=== PATIENT | male | born 1940 | race Caucasian/White ===

== ENCOUNTER → 2021-04-10 | Outpatient (CLI) | payer MEDICARE ==
--- NOTE | 2021-04-10 16:58 | RAD ---
EXAM: CT head without contrast INDICATION: Status post fall COMPARISON: None TECHNIQUE: Axial CT imaging through the head without intravenous contrast. One or more of the following individualized dose reduction techniques were utilized for this examinat ion: 1. Automated exposure control 2. Adjustment of the mA and/or kV according to patient size 3. Use of iterative reconstruction technique. FINDINGS: The ventricles and sulci are mildly enlarged. There is mild periventricular and deep white matter hyp oattenuation and multiple old lacunar infarcts in the basal ganglia bilaterally. No intracranial hemo rrhage or acute infarct, or mass lesion. The calvarium is intact. Paranasal sinuses and mastoid air c ells are clear. Globes and orbits are intact.. IMPRESSION: 1. No acute intracranial abnormality. 2. Moderate volume loss. 3. Multiple old small lacunar infarcts in the basal ganglia bilaterally. 4. Mild white matter disease, likely reflecting chronic microvascular ischemia. Electronically signed by: Zulma Perry MD (04/10/2021 4:55 PM) [id number]
== END ==
LOC: CT 16:26
PROVIDERS: ATTEND Family Medicine
DX: G31.89 Other specified degenerative diseases of nervous system (principal); W17.81XA Fall down embankment (hill), initial encounter
CPT/HCPCS: 70450

== ENCOUNTER 2021-07-09 05:52 | Observation (INO) | payer MEDICARE ==
[~2021-07-09] VITALS: Ht 175.3 cm; Wt 66.8 kg
--- NOTE | 2021-07-09 07:11 | PHYS DOC ---
General Adult EDM: Chief Complaint: ALTERED MENTAL STATUS HPI: HPI: Patient is a 80-year-old male coming with for altered mental status. At approximately 2200 last night, per , patient was seen in the couch looking the papers and confused, Khanh comes up with over the floor. States he was also mumbling to himself throughout the night in his sleep. This morning was disoriented, unable to answer questions such as me the president was or his grandkids names, until 0630 while in the emergency department became more oriented and able to answer questions appropriately. Has had similar episodes in the past that did not last as long, was told by his previous primary care provider that he had had TIAs. Review of Systems: Review of Systems: All other systems within normal limits except for as noted in the HPI Physical Exam: PE: Constitutional: Well developed, well nourished, no acute distress, non-toxic appearance. [] HENT: Normocephalic, atraumatic, bilateral external ears normal, nose normal. [] Eyes: PERRLA, conjunctiva normal, no discharge. [] Neck: No rigidity, supple, no stridor. [] Cardiovascular: Regular rate and rhythm, brisk cap refill [] Lungs & Thorax: Non labored symmetric respirations, no tachypnea or respiratory distress [] Abdomen: Soft, nondistended. Skin: Warm, dry, no erythema, no rash. [] Back: Unremarkable Extremities: No deformities, range of motion grossly intact, no lower extremity edema [] Neurologic: Alert and oriented X 3, no focal deficits noted. [] Psychologic: Affect normal, judgement normal, mood normal. [] EKG: EKG: [] Radiology/Procedures: Radiology/Procedures: [address] [address] IMAGING REPORT Signed PATIENT: ELÍAS LEWIS ACCOUNT: [id number] : 1940 LOCATION: ER AGE: 80 SEX: M EXAM STATUS: REG ER ORD. PHYSICIAN: NIMA MCKEON MD REASON: ALTERED MENTAL STATUS PROCEDURE: CT HEAD WO CONTRAST CT HEAD/BRAIN WO dated 07/09/2021 7:22 AM. Comparison: CT 04/10/2021. Clinical Indication: Reason: ALTERED MENTAL STATUS / Spl. Instructions: / History: Technical factors: Contiguous 5 mm axial images of the head were obtained from the skullbase to the vertex. No contrast was administered. Findings: There is no apparent intracranial mass, hemorrhage or abnormal extra-axial fluid collection. Areas of low density are again seen in the basal ganglia with chronic infarcts. No new area of abnormal density is identified. The ventricles and basilar cisterns are normally positioned. The sinuses and mastoid air cells are clear. Impression: No evidence of acute intracranial abnormality. Electronically signed by: Gerson Guaman Jr., MD (07/09/2021 8:01 AM) [id number] DICTATED AND SIGNED BY: GERSON GUAMAN Jr, MD DATE: 07/09/21 0758 CC: NIMA MCKEON MD; KRISTIE POSEY MD ~MTH0 0 [] Heart Score: C/O Chest Pain: No HEART Score for Chest Pain: HEART Score for Chest Pain Response (Comments) Value History Slighlty/Non-Suspicious 0 ECG Nonspecific Repolarizatio 1 Age > 65 2 Risk Factors >3 Risk Factors or Hx CAD 2 Troponin < Normal Limit 0 Total 5 Risk Factors: Risk Factors: DM, Current or recent (<one month) smoker, HTN, HLP, family history of CAD, obesity. Risk Scores: Score 0 - 3: 2.5% MACE over next 6 weeks - Discharge Home Score 4 - 6: 20.3% MACE over next 6 weeks - Admit for Clinical Observation Score 7 - 10: 72.7% MACE over next 6 weeks - Early Invasive Strategies Course & Med Decision Making: Course & Med Decision Making Pertinent Labs and Imaging studies reviewed. (See chart for details) [] Dragon Disclaimer: Dragon Disclaimer: This electronic medical record was generated, in whole or in part, using a voice recognition dictation system. Departure Departure: Impression: Primary Impression: AMS (altered mental status) Disposition: ADMITTED INPATIENT Admitting Physician: Kristie Posey Condition: STABLE Referrals: KRISTIE POSEY MD (PCP) NIMA MCKEON MD Jul 09, 2021 07:11
[2021-07-09 07:19] LABS: BASO # 0.1 x10^3/uL (0.0-0.2); BASO % 1 % (0-3); EOS # 0.3 x10^3/uL (0.0-0.7); EOS % 4 % (0-3); HEMATOCRIT 39.9 % (39.0-53.0); HEMOGLOBIN 13.6 g/dL (13.0-17.5); LYMPH # 1.3 x10^3/uL (1.0-4.8); LYMPH % 19 % (24-48); MEAN CORPUSCULAR HEMOGLOBIN 30 pg (25-35); MEAN CORPUSCULAR HGB CONC 34 g/dL (31-37); MEAN CORPUSCULAR VOLUME 87 fL (79-100); MONO # 0.6 x10^3/uL (0.0-1.1); MONO % 9 % (0-9); NEUT # 4.7 x10^3uL (1.8-7.7); NEUT % 67 % (31-73); PLATELET COUNT 260 x10^3/uL (140-400); RED BLOOD COUNT 4.56 x10^6/uL (4.30-5.70); RED CELL DISTRIBUTION WIDTH 13.9 % (11.5-14.5)
[2021-07-09 07:22] LABS: CALCIUM 9.5 mg/dL (8.5-10.1); CREATININE 1.4 mg/dL (0.7-1.3); GFR 48.6; POTASSIUM 4.6 mmol/L (3.5-5.1)
[2021-07-09 07:22] LABS: BARBITURATES NEG (NEG); BENZODIAZEPINES NEG (NEG); CANNABINOIDS NEG (NEG); COCAINE NEG (NEG); METHADONE NEG (NEG); OPIATES NEG (NEG); PHENCYCLIDINE NEG (NEG)
--- NOTE | 2021-07-09 07:22 | EKG ---
[address] [address] Test Date: 2021-07-09 Test Time: 07:12:33 Pat Name: ELÍAS LEWIS Department: Room: Gender: M [facility] Specialist: TANI : 1940 Requested By: NIMA MCKEON Order Number: [id number] Reading MD: Jatinder Don MD Measurements Intervals [place] Rate: 82 P: 26 [place]: 206 QRS: 40 QRSD: 60 T: 41 QT: 368 QTc: 433 Interpretive Statements SINUS RHYTHM RBBB Electronically Signed On 07-09-2021 10:16:28 CDT by Jatinder Don MD
[2021-07-09 07:28] LABS: AMPHETAMINE/METHAMPHETAMINE NEG (NEG)
[2021-07-09 07:35] LABS: ALBUMIN 3.5 g/dL (3.4-5.0); ALBUMIN/GLOBULIN RATIO 1.1 (1.0-1.7); MAGNESIUM 2.1 mg/dL (1.8-2.4); PHOSPHORUS 3.9 mg/dL (2.6-4.7); TOTAL BILIRUBIN 0.3 mg/dL (0.2-1.0); TOTAL PROTEIN 6.8 g/dL (6.4-8.2)
[2021-07-09 07:48] LABS: BACTERIA,URINE 0 /HPF (0-FEW); BILIRUBIN,URINE NEG (NEG); CLARITY,URINE CLEAR; COLOR,URINE STRAW; GLUCOSE,URINE NEG (NEG); NITRITE,URINE NEG (NEG); RBC,URINE RARE /HPF (0-2); SQUAMOUS EPITHELIAL CELL,UR FEW /LPF; UROBILINOGEN,URINE 0.2 mg/dL (0.2 mg/dL); WBC,URINE OCC /HPF (0-4)
--- NOTE | 2021-07-09 08:03 | RAD ---
CT HEAD/BRAIN WO dated 07/09/2021 7:22 AM. Comparison: CT 04/10/2021. Clinical Indication: Reason: ALTERED MENTAL STATUS / Spl. Instructions: / History: Technical factors: Contiguous 5 mm axial images of the head were obtained from the skullbase to the vertex. No contrast was administered. Findings: There is no apparent intracranial mass, hemorrhage or abnormal extra-axial fluid collection. Areas of low density are again seen in the basal ganglia with chronic infarcts. No new area of abnormal densi ty is identified. The ventricles and basilar cisterns are normally positioned. The sinuses and mastoi d air cells are clear. Impression: No evidence of acute intracranial abnormality. Electronically signed by: Alcon Guaman Jr., MD (07/09/2021 8:01 AM) [id number]
[2021-07-09] MEDS ORDERED: ACETAMINOPHEN 325 MG TABLET PO PRN (08:30)
[2021-07-09] MEDS ORDERED: ONDANSETRON PF 4 MG/2 ML VIAL. IVP PRN (08:30)
[2021-07-09 14:21] VITALS: BP 135/72
[2021-07-09 18:53] VITALS: BP 148/76
[2021-07-09 22:45] VITALS: BP 158/78
[2021-07-10 05:58] VITALS: BP 154/81
[2021-07-10 05:59] LABS: BASO # 0.1 x10^3/uL (0.0-0.2); BASO % 1 % (0-3); EOS # 0.4 x10^3/uL (0.0-0.7); EOS % 6 % (0-3); HEMATOCRIT 40.6 % (39.0-53.0); HEMOGLOBIN 13.6 g/dL (13.0-17.5); LYMPH # 1.4 x10^3/uL (1.0-4.8); LYMPH % 22 % (24-48); MEAN CORPUSCULAR HEMOGLOBIN 30 pg (25-35); MEAN CORPUSCULAR HGB CONC 34 g/dL (31-37); MEAN CORPUSCULAR VOLUME 88 fL (79-100); MONO # 0.6 x10^3/uL (0.0-1.1); MONO % 9 % (0-9); NEUT # 4.2 x10^3uL (1.8-7.7); NEUT % 63 % (31-73); PLATELET COUNT 261 x10^3/uL (140-400); RED BLOOD COUNT 4.63 x10^6/uL (4.30-5.70); RED CELL DISTRIBUTION WIDTH 13.6 % (11.5-14.5); WHITE BLOOD COUNT 6.6 x10^3/uL (4.0-11.0)
[2021-07-10 06:10] LABS: CALCIUM 8.9 mg/dL (8.5-10.1); CREATININE 1.2 mg/dL (0.7-1.3); GFR 58.1; POTASSIUM 4.1 mmol/L (3.5-5.1)
[2021-07-10 10:30] VITALS: BP 124/70
[2021-07-10] MEDS ORDERED: ASPI-889 PO (10:39)
[2021-07-10] MEDS ORDERED: FINA5TAB4 PO (10:39)
[2021-07-10] MEDS ORDERED: BRIM5DRO4 EACHEYE (10:39)
[2021-07-10] MEDS ORDERED: LATA7.5D OU (10:39)
[2021-07-10] MEDS ORDERED: ATORVASTATIN CA80 MG PO (10:39)
[2021-07-10 15:05] VITALS: BP 156/76
--- NOTE | 2021-07-10 17:35 | NUR ---
Discharge Note: MASOUD LEWIS [facility] Discharge instructions and discharge home medications reviewed with Patient and a copy given. All questions have been answered and understanding verbalized. Discharge instructions and handouts given. Cardiac diet, TIA, and stroke education provided. Discontinued IVs. Patient discharged to home. Pt left unit via wheelchair to private vehicle.
--- NOTE | 2021-07-11 13:05 | HP ---
DATE OF SERVICE: 07/11/2021 ADMIT DATE: 07/09/2021 HISTORY OF PRESENT ILLNESS: He is an 80-year-old gentleman, initially came in through the Emergency Room and had a change in mental status. The patient was on the couch, lifting the papers, got increasingly confused, started mumbling through his sleep, was unable to be appropriate with family members. He has had previous histories of TIAs or strokes and the patient was admitted to the hospital for further evaluation and treatment for rule out IL protocol and change in mental status, possible stroke evolution. 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 IMMUNIZATIONS: Influenza and COVID up to date vaccines. FAMILY HISTORY: Noncontributory. ALLERGIES: MORPHINE. SOCIAL HISTORY: The patient had about a [id number] history of smoking, stopped however since 1998. Denies IV drug use or any other medication off of what has been approved. The patient is a FULL CODE. REVIEW OF SYSTEMS: The patient presently just feels generally weak, trouble with some of his speech. PHYSICAL EXAMINATION: HEENT: The patient's head atraumatic, normocephalic. Eyes: PERRLA without jaundice. The mouth and throat were normal. NECK: Supple without JVD, carotid bruits or thyroidmegaly. VITAL SIGNS: Blood pressure 150/70, respiratory rate 18, pulse 80. He is afebrile. Room air 94-97. LUNGS: Clear. EXTREMITIES: No clubbing, cyanosis, nor edema. NEUROLOGIC: The patient's speech fluent, spontaneous, appropriate. BACK: Denies any severe back pain at all. IMAGING DATA: CT of the head basically unremarkable, just showing chronic areas of infarction, possibly in the basal ganglia. Otherwise, the patient made good progress and was admitted for observation and continued to be monitored carefully, making further evaluation on him as indicated. IMPRESSION: Transient ischemic attack, change in mental status, history of compression fracture at T12. Make further assessment on him as indicated. DIPIKA/JARAD DR: DIPIKA/jonny TID: [id number]
== END 2021-07-10 17:00 | disposition home or self-care (01) ==
LOC: ER 05:52 → 1 SOUTH 08:26 → INTOOBSV 08:26
PROVIDERS: ADMIT Family Medicine; ATTEND Family Medicine
DX: G45.9 Transient cerebral ischemic attack, unspecified (principal); Z20.822 Contact with and (suspected) exposure to COVID-19; R41.82 Altered mental status, unspecified; I95.9 Hypotension, unspecified; F41.9 Anxiety disorder, unspecified; J44.9 Chronic obstructive pulmonary disease, unspecified; Z86.73 Personal history of transient ischemic attack (TIA), and cerebral infarction without residual deficits; Z87.311 Personal history of (healed) other pathological fracture; Z87.891 Personal history of nicotine dependence; Z98.49 Cataract extraction status, unspecified eye; Z87.440 Personal history of urinary (tract) infections; Z79.899 Other long term (current) drug therapy; Z98.890 Other specified postprocedural states
CPT/HCPCS: 36415; 70450; 80048; 80053; 80307; 81001; 82140; 83605; 83735; 83880; 84100; 84484; 85025; 87426; 93005; 99285; G0378; G0480; U0003; G0379

== ENCOUNTER 2021-11-26 23:01 | Observation (INO) | payer MEDICARE ==
[~2021-11-26] VITALS: Ht 175.3 cm; Wt 60.0 kg
[~2021-11-26 23:01] MED LIST: ASPI-889 PO; ATORVASTATIN CA80 MG PO; BRIM5DRO4 EACHEYE; FINA5TAB4 PO; LATA7.5D OU
--- NOTE | 2021-11-26 23:15 | PHYS DOC ---
Past History Additional Past Medical Histor: pneumothorax, epiditimitis,nodules in lungs Past Surgical History: Pneumothorax, Other Additional Past Surgical Histo: lungs glued to chest wall, surg for epiditimitis Alcohol Use: None General Adult HPI: HPI: ".. I just fell.. no reason..yeah.. my hip hurts... chest hurts.. " Patient is a 81 year old male who presents with above hx of fall . Patient very poor historian reference mechanism of fall or cause of fall. Denies that he tripped. Patient complains of pain on right chest wall anterior axillary line. Patient complains of pain in right hip. Prior to fall was able to walk with walker, currently unable to walk with his walker. Patient has past medical history of dementia, multiple TIAs, hypotension, pneumothorax, COPD, multiple pulmonary blebs, urinary tract infections, T12 compression fractures, anxiety, approximately 55 pack year smoking history however stopped in 1998. Patient has received influenza and COVID vaccinations. Patient lives with his . states he has been falling much more. who has her own disabilities states she cannot handle him tonight. 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 Patient normally follows with Dr. Posey. Review of Systems: Review of Systems: Constitutional: Denies fever or chills Eyes: Denies change in visual acuity HENT: Denies nasal congestion or sore throat. Complains of head injury and fall Respiratory: Denies cough or shortness of breath Cardiovascular: Complains of right chest wall pain GI: Denies abdominal pain, nausea, vomiting, bloody stools or diarrhea : Denies dysuria Musculoskeletal: Complains of right hip pain Integument: Denies rash Neurologic: Denies headache, focal weakness or sensory changes Endocrine: Denies polyuria or polydipsia Lymphatic: Denies swollen glands Psychiatric: Denies depression or anxiety Family History: Family History: Noncontributory to presentation Current Medications: Current Meds: See nursing for home meds Allergies: Allergies: Allergies Coded Allergies Type Severity Reaction Last Updated Verified morphine Allergy Unknown 07/09/21 Yes Physical Exam: PE: Constitutional: Moderate acute distress, non-toxic appearance. [] HENT: Normocephalic, atraumatic, bilateral external ears normal, oropharynx moist, no oral exudates, nose normal. Hard of hearing. Complaining of earache after fall yesterday.. On that fall he hit the tub on the left side of his head. Eyes: PERRLA, EOMI, conjunctiva normal, no discharge. [] Neck: Normal range of motion, no tenderness, supple, no stridor. [] Cardiovascular: Tachycardia heart rate regular rhythm, no murmur []. PMI to left. Bedside monitor occasionally did show episodes of bigeminy. Lungs & Thorax: Bilateral breath sounds equal apex with scattered wheezes on auscultation []. The patient has old surgery scars on chest. Patient has tenderness along right anterior axillary line floating ribs and level of sternal notch. Abdomen: Bowel sounds normal, soft, no tenderness, no masses, no pulsatile mas ses. Scaphoid. Right hip tenderness Skin: Warm, dry, no erythema, no rash. [] Back: No tenderness, no CVA tenderness. [] Extremities: Right hip tenderness, no cyanosis, no clubbing, ROM intact, no edema. [] Arthritic changes. Neurologic: Alert and oriented X 3, normal motor function, normal sensory function, no focal deficits noted. [] Psychologic: Affect anxious, mood normal. [] EKG: EKG: My interpretation of EKG shows a sinus rhythm with low voltage at a rate of 79. No findings of acute STEMI of contralateral changes. There did appear to be some bundle branch blockage, similar to prior EKGs on file. Time of EKG is 2358 [] Radiology/Procedures: Radiology/Procedures: [address] [address] IMAGING REPORT Signed PATIENT: ELÍAS LEWIS ACCOUNT: [id number] : 1940 LOCATION: ER AGE: 81 SEX: M EXAM STATUS: REG ER ORD. PHYSICIAN: BRIANNA TUCKER MD REASON: fall PROCEDURE: PORTABLE CHEST 1V EXAMINATION: Chest radiograph. VIEWS: 1 COMPARISON: None INDICATION:81 years, Male, fall. FINDINGS: Normal cardiomediastinal silhouette. Biapical pleural thickening/scarring. Surgical suture in the right apical lung. Patchy airspace opacity in the right lateral lung base. Possible small right pleural effusion. No pneumothorax. No acute osseous process. IMPRESSION: Focal patchy airspace opacity in the right lateral lung base, indeterminate, could represent atelectatic changes/scarring. Possible small right pleural effusion. Electronically signed by: Werner Forrest MD (11/27/2021 12:59 AM) [facility] DICTATED AND SIGNED BY: WERNER FORREST MD DATE: 11/27/21 0056 CC: KRISTIE POSEY MD; BRIANNA TUCKER MD ~MTH0 [address] [place] [address] IMAGING REPORT Signed PATIENT: ELÍAS LEWIS ACCOUNT: [id number] : 1940 LOCATION: ER AGE: 81 SEX: M EXAM STATUS: REG ER ORD. PHYSICIAN: BRIANNA TUCKER MD REASON: fall PROCEDURE: RIGHT FEMUR XRAY EXAMINATION: Right femur radiograph. VIEWS: 1 COMPARISON: None INDICATION:81 years, Male, fall. FINDINGS: No acute fracture, dislocation or subluxation. No bone erosion or periosteal reaction. No soft tissue swelling. IMPRESSION: No acute osseous process. Electronically signed by: Werner Forrest MD (11/27/2021 2:00 AM) [facility] DICTATED AND SIGNED BY: WERNER FORREST MD DATE: 11/27/21 0151 CC: KRISTIE POSEY MD; BRIANNA TUCKER MD ~MTH0 0 [][address] [address] IMAGING REPORT Signed PATIENT: ELÍAS LEWIS ACCOUNT: [id number] : 1940 LOCATION: ER AGE: 81 SEX: M EXAM STATUS: REG ER ORD. PHYSICIAN: BRIANNA TUCKER MD REASON: fell hit head on bathtub edge PROCEDURE: CT HEAD WO CONTRAST EXAMINATION: CT head and cervical spine without IV contrast. INDICATION:81 years, Male, falling down. COMPARISON: CT dated 07/09/2021 TECHNIQUE: Spiral acquisition of contiguous images from the skull base to the vertex were obtained. CT of the cervical spine was obtained using contiguous spiral imaging from the skull base to the upper thoracic level. Sagittal and coronal 2D reformatted series were provided by the technologist. Soft tissue and bone window algorithms were reviewed. Exposure: One or more of the following individualized dose reduction techniques were utilized for this examination: 1. Automated exposure control 2. Adjustment of the mA and/or kV according to patient size 3. Use of iterative reconstruction technique. FINDINGS: CT HEAD: Neither mass, midline shift, intracranial hemorrhage, acute/subacute ischemic changes, nor extraaxial fluid collections are seen. Moderate brain parenchymal volume loss. Similar supratentorial periventricular white matter hypodensities, indeterminate but most likely representing chronic microangiopathic disease. 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 The paranasal sinuses, mastoid air cells, and middle ears are clear. The orbital contents appear within normal limits. CT CERVICAL SPINE: Anatomic alignment of the cervical spine is maintained. Neither fracture, subluxation, nor traumatic spondylolisthesis is seen. The vertebral body heights are preserved. Multilevel degenerative changes with disc space narrowing and osteophytes. Multilevel bilateral facet and uncovertebral arthropathy. There is no evidence of a large intraspinal hematoma. The prevertebral and paravertebral soft tissues are within normal limits. IMPRESSION: 1. No acute intracranial abnormality. 2. No acute fracture of the cervical spine. EXAMINATION: CT chest, abdomen and pelvis with IV contrast. INDICATION:81 years, Male, falling down. TECHNIQUE: Axial CT images of the chest, abdomen and pelvis were obtained. Coronal and sagittal reformatted performed. COMPARISON: None. Exposure: One or more of the following individualized dose reduction techniques were utilized for this examination: 1. Automated exposure control 2. Adjustment of the mA and/or kV according to patient size 3. Use of iterative reconstruction technique. FINDINGS: CHEST: Subcentimeter hypodense nodule in the right thyroid lobe. Unremarkable esophagus. Moderate size hiatal hernia. No lymphadenopathy in the chest by size criteria. No cardiomegaly or pericardial effusions. Mild coronary artery atherosclerotic calcifications. Normal caliber thoracic aorta and pulmonary arteries. Central airways are patent. Post right apical lung wedge resection changes with scarring and volume loss. Right basilar posterior pleural thickening with calcified plaques. Patchy groundglass opacity in the right lateral basilar lung. [id number]-yw-lykxnqes centrilobular and paraseptal emphysema in the upper lobes. No pleural effusion or pneumothorax. Multiple scattered bilateral solid pulmonary nodules with the largest in the posterior left lower lobe measures 6 mm. ABDOMEN/PELVIS: Suboptimal exam due to motion artifact. Liver, spleen, gallbladder, biliary ducts are unremarkable. Distal pancreatic body and tail atrophic changes. Nodular thickening of the left adrenal gland without discrete nodule. Right adrenal gland is unremarkable. No hydronephrosis in either kidney. Focal cortical thinning in the lower pole right kidney. Simple appearing right parapelvic renal cyst. No bowel obstruction. Appendix is not seen with certainty. Moderate aortoiliac atherosclerotic calcifications without dilation or significant narrowing. Mesenteric arteries and portal veins are patent. [place] fat in the central small bowel mesentery with prominent mesenteric lymph nodes, nonspecific findings and can be seen in mesenteric panniculitis. No pneumoperitoneum or ascites. No lymphadenopathy in the abdomen by size criteria. Multiple calcifications layering in the posterior right posterior urinary bladder, most likely bladder stones. Prostamegaly indents bladder base. MUSCULOSKELETAL STRUCTURES: Small right inguinal hernia containing loop of small bowel without obstruction. Chronic healed sternal body fracture. No acute fracture. Mild compression deformity of T12 vertebral body, likely chronic. IMPRESSION: 1. No acute traumatic injury to the chest, abdomen or pelvis. 2. Patchy groundglass opacity in the right lateral basilar lung, nonspecific but may be infectious or inflammatory. 3. Multiple scattered bilateral solid pulmonary nodules with the largest in the posterior left lower lobe measures 6 mm. Recommend 6 months follow-up with CT chest. 4. Moderate size hiatal hernia. 5. Multiple calcifications layering in the posterior right posterior urinary bladder, most likely bladder stones. 6. Prostamegaly. Correlate with PSA level. 7. Small right inguinal hernia containing loop of small bowel without obstruction. 8. Mild compression deformity of T12 vertebral body, likely chronic. Electronically signed by: Werner Forrest MD (11/27/2021 1:32 AM) [facility] DICTATED AND SIGNED BY: WERNER FORREST MD DATE: 11/27/21 0102 CC: KRISTIE POSEY MD; BRIANNA TUCKER MD ~MTH0 0 Heart Score: C/O Chest Pain: N/A HEART Score for Chest Pain: HEART Score for Chest Pain Response (Comments) Value History Moderately Suspicious 1 ECG Nonspecific Repolarizatio 1 Age > 65 2 Risk Factors 1 or 2 Risk Factors 1 Troponin < Normal Limit 0 Total 5 Risk Factors: Risk Factors: DM, Current or recent (<one month) smoker, HTN, HLP, family history of CAD, obesity. Risk Scores: Score 0 - 3: 2.5% MACE over next 6 weeks - Discharge Home Score 4 - 6: 20.3% MACE over next 6 weeks - Admit for Clinical Observation Score 7 - 10: 72.7% MACE over next 6 weeks - Early Invasive Strategies Course & Med Decision Making: Course & Med Decision Making Pertinent Labs and Imaging studies reviewed. (See chart for details) Discussed presentation, testing and treatment plan with Dr. Posey. Admit to his service. Will obtain cardiology consult due to runs of [employer]. Impression: 1. Falling 2. Head injury 3. Elevated D-dimer 1.15 4. Anemia 12.9 hemoglobin 5. Malnutrition Albumin 3.1 6. Right hip contusion 7. Right chest wall contusion [] Dragon Disclaimer: Dragon Disclaimer: This electronic medical record was generated, in whole or in part, using a voice recognition dictation system. Departure Departure: Referrals: KRISTIE POSEY MD (PCP) Javid Disclaimer This chart was dictated in whole or in part using Voice Recognition software in a busy, high-work load, and often noisy Emergency Department environment. It may contain unintended and wholly unrecognized errors or omissions. BRIANNA TUCKER MD Nov 26, 2021 23:15
[2021-11-27] MEDS ORDERED: IV RINGERS SOLUTION,LACTATED 1,000 ML IV SCH
[2021-11-27 00:04] LABS: BASO # 0.1 x10^3/uL (0.0-0.2); BASO % 1 % (0-3); EOS # 0.2 x10^3/uL (0.0-0.7); EOS % 4 % (0-3); HEMATOCRIT 38.4 % (39.0-53.0); HEMOGLOBIN 12.9 g/dL (13.0-17.5); LYMPH # 1.4 x10^3/uL (1.0-4.8); LYMPH % 27 % (24-48); MEAN CORPUSCULAR HEMOGLOBIN 30 pg (25-35); MEAN CORPUSCULAR HGB CONC 34 g/dL (31-37); MEAN CORPUSCULAR VOLUME 88 fL (79-100); MONO # 0.6 x10^3/uL (0.0-1.1); MONO % 12 % (0-9); NEUT # 2.9 x10^3uL (1.8-7.7); NEUT % 57 % (31-73); PLATELET COUNT 238 x10^3/uL (140-400); RED BLOOD COUNT 4.37 x10^6/uL (4.30-5.70); RED CELL DISTRIBUTION WIDTH 13.9 % (11.5-14.5); WHITE BLOOD COUNT 5.1 x10^3/uL (4.0-11.0)
[2021-11-27 00:13] LABS: CALCIUM 8.7 mg/dL (8.5-10.1); CREATININE 1.3 mg/dL (0.7-1.3); GFR 52.9
[2021-11-27 00:16] LABS: INFLUENZA A PATIENT NEGATIVE (NEGATIVE); INFLUENZA B PATIENT NEGATIVE (NEGATIVE)
[2021-11-27] MEDS ORDERED: IOHEXOL 300 MG/ML 75 ML VIAL. IV ONE (00:30)
[2021-11-27] MEDS ORDERED: CONTRAST GIVEN. MC PRN (00:30)
[2021-11-27 00:31] LABS: ALBUMIN 3.1 g/dL (3.4-5.0); DIRECT BILIRUBIN 0.1 mg/dL (0.0-0.2); MAGNESIUM 2.2 mg/dL (1.8-2.4); TOTAL BILIRUBIN 0.2 mg/dL (0.2-1.0); TOTAL PROTEIN 6.7 g/dL (6.4-8.2)
--- NOTE | 2021-11-27 01:01 | RAD ---
EXAMINATION: Chest radiograph. VIEWS: 1 COMPARISON: None INDICATION:81 years, Male, fall. FINDINGS: Normal cardiomediastinal silhouette. Biapical pleural thickening/scarring. Surgical suture in the rig ht apical lung. Patchy airspace opacity in the right lateral lung base. Possible small right pleural effusion. No pneumothorax. No acute osseous process. IMPRESSION: Focal patchy airspace opacity in the right lateral lung base, indeterminate, could represent atelecta tic changes/scarring. Possible small right pleural effusion. Electronically signed by: Katerin Forrest MD (11/27/2021 12:59 AM) [facility]
--- NOTE | 2021-11-27 01:34 | RAD ---
EXAMINATION: CT head and cervical spine without IV contrast. INDICATION:81 years, Male, falling down. COMPARISON: CT dated 07/09/2021 TECHNIQUE: Spiral acquisition of contiguous images from the skull base to the vertex were obtained. C T of the cervical spine was obtained using contiguous spiral imaging from the skull base to the upper thoracic level. Sagittal and coronal 2D reformatted series were provided by the technologist. Soft t issue and bone window algorithms were reviewed. Exposure: One or more of the following individualized dose reduction techniques were utilized for thi s examination: 1. Automated exposure control 2. Adjustment of the mA and/or kV according to patient size 3. Use of iterative reconstruction technique. FINDINGS: CT HEAD: Neither mass, midline shift, intracranial hemorrhage, acute/subacute ischemic changes, nor extraaxial fluid collections are seen. Moderate brain parenchymal volume loss. Similar supratentorial perivent ricular white matter hypodensities, indeterminate but most likely representing chronic microangiopath ic disease. 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 The paranasal sinuses, mastoid air cells, a nd middle ears are clear. The orbital contents appear within normal limits. CT CERVICAL SPINE: Anatomic alignment of the cervical spine is maintained. Neither fracture, subluxation, nor traumatic spondylolisthesis is seen. The vertebral body heights are preserved. Multilevel degenerative changes with disc space narrowing and osteophytes. Multilevel bilateral facet and uncovertebral arthropathy. There is no evidence of a large intraspinal hematoma. The prevertebral and paravertebral soft tissues are within normal limits. IMPRESSION: 1. No acute intracranial abnormality. 2. No acute fracture of the cervical spine. EXAMINATION: CT chest, abdomen and pelvis with IV contrast. INDICATION:81 years, Male, falling down. TECHNIQUE: Axial CT images of the chest, abdomen and pelvis were obtained. Coronal and sagittal refor matted performed. COMPARISON: None. Exposure: One or more of the following individualized dose reduction techniques were utilized for thi s examination: 1. Automated exposure control 2. Adjustment of the mA and/or kV according to patient size 3. Use of iterative reconstruction technique. FINDINGS: CHEST: Subcentimeter hypodense nodule in the right thyroid lobe. Unremarkable esophagus. Moderate size hiata l hernia. No lymphadenopathy in the chest by size criteria. No cardiomegaly or pericardial effusions. Mild coronary artery atherosclerotic calcifications. Normal caliber thoracic aorta and pulmonary art eries. Central airways are patent. Post right apical lung wedge resection changes with scarring and volume l oss. Right basilar posterior pleural thickening with calcified plaques. Patchy groundglass opacity in the right lateral basilar lung. Kwnw-mx-xafscgsb centrilobular and paraseptal emphysema in the upper lobes. No pleural effusion or pneumothorax. Multiple scattered bilateral solid pulmonary nodules wit h the largest in the posterior left lower lobe measures 6 mm. ABDOMEN/PELVIS: Suboptimal exam due to motion artifact. Liver, spleen, gallbladder, biliary ducts are unremarkable. Distal pancreatic body and tail atrophic changes. Nodular thickening of the left adrenal gland without discrete nodule. Right adrenal gland is unremarkable. No hydronephrosis in either kidney. Focal cortical thinning in the lower pole right ki dney. Simple appearing right parapelvic renal cyst. No bowel obstruction. Appendix is not seen with certainty. Moderate aortoiliac atherosclerotic calcif ications without dilation or significant narrowing. Mesenteric arteries and portal veins are patent. [place] fat in the central small bowel mesentery with prominent mesenteric lymph nodes, nonspecific fin dings and can be seen in mesenteric panniculitis. No pneumoperitoneum or ascites. No lymphadenopathy in the abdomen by size criteria. Multiple calcifications layering in the posterior right posterior ur inary bladder, most likely bladder stones. Prostamegaly indents bladder base. MUSCULOSKELETAL STRUCTURES: Small right inguinal hernia containing loop of small bowel without obstruction. Chronic healed sterna l body fracture. No acute fracture. Mild compression deformity of T12 vertebral body, likely chronic. IMPRESSION: 1. No acute traumatic injury to the chest, abdomen or pelvis. 2. Patchy groundglass opacity in the right lateral basilar lung, nonspecific but may be infectious o r inflammatory. 3. Multiple scattered bilateral solid pulmonary nodules with the largest in the posterior left lower lobe measures 6 mm. Recommend 6 months follow-up with CT chest. 4. Moderate size hiatal hernia. 5. Multiple calcifications layering in the posterior right posterior urinary bladder, most likely bl adder stones. 6. Prostamegaly. Correlate with PSA level. 7. Small right inguinal hernia containing loop of small bowel without obstruction. 8. Mild compression deformity of T12 vertebral body, likely chronic. Electronically signed by: Katerin Forrest MD (11/27/2021 1:32 AM) [facility]
--- NOTE | 2021-11-27 02:02 | RAD ---
EXAMINATION: Right femur radiograph. VIEWS: 1 COMPARISON: None INDICATION:81 years, Male, fall. FINDINGS: No acute fracture, dislocation or subluxation. No bone erosion or periosteal reaction. No soft tissue swelling. IMPRESSION: No acute osseous process. Electronically signed by: Katerin Forrest MD (11/27/2021 2:00 AM) [facility]
[2021-11-27] MEDS ORDERED: ACETAMINOPHEN 325 MG TABLET PO PRN (02:30)
[2021-11-27] MEDS ORDERED: ONDANSETRON PF 4 MG/2 ML VIAL. IVP PRN (02:30)
[2021-11-27] MEDS ORDERED: ALBUTEROL SULFATE 8GM INHALER. INH ONE (02:33)
[2021-11-27 02:57] LABS: AMPHETAMINE/METHAMPHETAMINE NEG (NEG); BARBITURATES NEG (NEG); BENZODIAZEPINES NEG (NEG); CANNABINOIDS NEG (NEG); COCAINE NEG (NEG); METHADONE NEG (NEG); OPIATES NEG (NEG); PHENCYCLIDINE NEG (NEG)
[2021-11-27 02:58] LABS: BACTERIA,URINE 0 /HPF (0-FEW); CLARITY,URINE CLEAR; COLOR,URINE YELLOW; GLUCOSE,URINE NEG (NEG); NITRITE,URINE NEG (NEG); RBC,URINE 0 /HPF (0-2); UROBILINOGEN,URINE 0.2 mg/dL (0.2 mg/dL); WBC,URINE 0 /HPF (0-4)
[2021-11-27 02:59] LABS: SQUAMOUS EPITHELIAL CELL,UR OCC /LPF
[2021-11-27] MEDS: IV RINGERS SOLUTION,LACTATED 1,000 ML IV SCH ×3 (05:13→15:00)
[2021-11-27 05:20] VITALS: BP 211/96
--- NOTE | 2021-11-27 06:45 | EKG ---
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
--- NOTE | 2021-11-27 08:15 | PDOC2 ---
THEA ALFONSO ELAN 11/27/21 0815: CARDIAC CONSULT DATE OF CONSULT DOS: DATE: 11/27/21 TIME: 08:02 REASON FOR CONSULT Reason for Consult Dysrrhythmia PVC frequent falls REFERRING PHYSICIAN Referring Physician Dr. Dominguez SOURCE Source: Chart review, Patient HPI History of Present Illness This is an 81 yo female who presented secondary to right hip pain after fall. Patient initially unable to provide any details of events leading up to admission. When asked about having a fall, patient reports he feel in the bathroom against the tub. Reports having multiple fall in the past. He does not recall any precipitating dizziness or lightheadedness. Denies any LOC. Unsure why he has fallen in past. Reports "it just happens". Is feeling well this morning and denies any chest pain, shortness of breath, dizziness, diaphoresis, or nausea/vomiting. Was noted on tele with frequent PVC's, which prompted this consult. Patient reports history of "throwing PVC's". No recent cardiac workup known. PAST MEDICAL HISTORY Cardiovascular: HTN, hyperipidemia Pulmonary: COPD, Other ( pulmonary blebs, pneumothorax) CENTRAL NERVOUS SYSTEM: TIA GI: GERD Psych: Anxiety, Depression Musculoskeletal: Osteoarthritis, Other (falls ) Renal/: Benign prostatic enlarg. PAST SURGICAL HISTORY Past Surgical History: Cataract Removal SOCIAL HISTORY Smoke: Quit ALCOHOL: none Drugs: None Lives: with Family CURRENT MEDICATIONS Current Medications Current Medications Lactated Ringer's 1,000 ml @ 100 mls/hr Q10H IV Last administered on 11/27/21at 00:25; Start 11/27/21 at 00:00; Stop 11/27/21 at 09:59 Iohexol (Omnipaque 300 Mg/ml) 75 ml 1X ONCE IV ; Start 11/27/21 at 00:30; Stop 11/27/21 at 00:31; Status DC Info (Do NOT chart on this entry -- for MONITORING) 1 each PRN DAILY PRN MC SEE COMMENTS; Start 11/27/21 at 00:30; Stop 11/29/21 at 00:29 Ondansetron HCl (Zofran) 4 mg PRN Q4HRS PRN IVP NAUSEA/VOMITING; Start 11/27/21 at 02:30; Stop 11/28/21 at 02:29 Acetaminophen (Tylenol) 650 mg PRN Q4HRS PRN PO FEVER > 100.3'F; Start 11/27/21 at 02:30; Stop 11/28/21 at 02:29 Albuterol Sulfate (Ventolin Hfa Inhaler) 2 puff QID ONCE INH ; Start 11/27/21 at 02:33; Stop 11/27/21 at 02:34; Status DC Lactated Ringer's 1,000 ml @ 160 mls/hr Q6H15M IV Last administered on 11/27/21at 05:13; Start 11/27/21 at 02:30 Active Scripts Active Reported Aspirin Ec (Aspirin) 81 Mg Tablet.dr 1 Tab PO DAILY Latanoprost 0.005% Eye Drop (Latanoprost/Pf) 7.5 Ml Drops 1 Drop OU QHS Brimonidine Tartrate 5 Ml Drops 1 Drop EACHEYE BID Finasteride 5 Mg Tablet 1 Tab PO DAILY Atorvastatin Calcium 80 Mg Tablet 80 Mg PO QHS ALLERGIES Allergies: Coded Allergies: morphine (Verified Allergy, Unknown, 07/09/21) ROS Review of Systems 14 ROS conducted with pertinent positives noted above in HPI PHYSICAL EXAM General: Alert, Cooperative, No acute distress, Other (oriented to person and place) HEENT: Atraumatic Lungs: Clear to auscultation Heart: Regular rate Abdomen: Soft, No tenderness Extremities: No edema Skin: No breakdown Neuro: Normal speech, Sensation intact Psych/Mental Status: Mood NL, Other (forgetful ) MUSCULOSKELETAL: Osteoarthritic changes both hands VITALS Vital Signs Vital Signs Date Time Temp Pulse Resp B/P (MAP) Pulse Ox O2 Delivery O2 Flow Rate FiO2 11/27/21 05:20 Room Air 11/27/21 05:20 97.2 48 18 211/96 (134) 98 LABS LABS Laboratory Tests Test 11/26/21 23:44 11/26/21 23:50 11/27/21 02:37 11/27/21 04:00 White Blood Count 5.1 x10^3/uL (4.0-11.0) Red Blood Count 4.37 x10^6/uL (4.30-5.70) Hemoglobin 12.9 g/dL (13.0-17.5) Hematocrit 38.4 % (39.0-53.0) Mean Corpuscular Volume 88 fL (79-100) Mean Corpuscular Hemoglobin 30 pg (25-35) Mean Corpuscular Hemoglobin Concent 34 g/dL (31-37) Red Cell Distribution Width 13.9 % (11.5-14.5) Platelet Count 238 x10^3/uL (140-400) Neutrophils (%) (Auto) 57 % (31-73) Lymphocytes (%) (Auto) 27 % (24-48) Monocytes (%) (Auto) 12 % (0-9) Eosinophils (%) (Auto) 4 % (0-3) Basophils (%) (Auto) 1 % (0-3) Neutrophils # (Auto) 2.9 x10^3uL (1.8-7.7) Lymphocytes # (Auto) 1.4 x10^3/uL (1.0-4.8) Monocytes # (Auto) 0.6 x10^3/uL (0.0-1.1) Eosinophils # (Auto) 0.2 x10^3/uL (0.0-0.7) Basophils # (Auto) 0.1 x10^3/uL (0.0-0.2) Prothrombin Time 10.6 SEC (9.4-11.4) Prothromb Time International Ratio 1.0 (0.9-1.1) Activated Partial Thromboplast Time 24 SEC (23-33) D-Dimer (Gisele) 1.15 mg/L (0.00-0.50) Sodium Level 139 mmol/L (136-145) Potassium Level 4.0 mmol/L (3.5-5.1) Chloride Level 105 mmol/L (98-107) Carbon Dioxide Level 29 mmol/L (21-32) Anion Gap 5 (6-14) Blood Urea Nitrogen 19 mg/dL (8-26) Creatinine 1.3 mg/dL (0.7-1.3) Estimated GFR (Cockcroft-Gault) 52.9 Glucose Level 81 mg/dL (70-99) Calcium Level 8.7 mg/dL (8.5-10.1) Magnesium Level 2.2 mg/dL (1.8-2.4) Total Bilirubin 0.2 mg/dL (0.2-1.0) Direct Bilirubin 0.1 mg/dL (0.0-0.2) Aspartate Amino Transf (AST/SGOT) 22 U/L (15-37) Alanine Aminotransferase (ALT/SGPT) 26 U/L (16-63) Alkaline Phosphatase 91 U/L (46-116) Creatine Kinase 83 U/L (39-308) Troponin I High Sensitivity 15 ng/L (4-75) 15 ng/L (4-75) BD-Vot-S-Type Natriuretic Peptide 221 pg/mL (0-449) Total Protein 6.7 g/dL (6.4-8.2) Albumin 3.1 g/dL (3.4-5.0) Lipase 158 U/L (73-393) Influenza Type A (Rapid) Negative (NEGATIVE) Influenza Type B (Rapid) Negative (NEGATIVE) SARS-CoV-2 Antigen (Rapid) Negative (NEGATIVE) Urine Collection Type Clean catch Urine Color Yellow Urine Clarity Clear Urine pH 6.0 Urine Specific [place] 1.015 Urine Protein Neg (NEG-TRACE) Urine Glucose (UA) Neg mg/dL (NEG) Urine Ketones (Stick) Neg mg/dL (NEG) Urine Blood Neg (NEG) Urine Nitrite Neg (NEG) Urine Bilirubin Neg (NEG) Urine Urobilinogen Dipstick 0.2 mg/dL (0.2 mg/dL) Urine Leukocyte Esterase Neg (NEG) Urine RBC 0 /HPF (0-2) Urine WBC 0 /HPF (0-4) Urine Squamous Epithelial Cells Occ /LPF Urine Bacteria 0 /HPF (0-FEW) Urine Opiates Screen Neg (NEG) Urine Methadone Screen Neg (NEG) Urine Barbiturates Neg (NEG) Urine Phencyclidine Screen Neg (NEG) Urine Amphetamine/Methamphetamine Neg (NEG) Urine Benzodiazepines Screen Neg (NEG) Urine Cocaine Screen Neg (NEG) Urine Cannabinoids Screen Neg (NEG) Urine Ethyl Alcohol Neg (NEG) Test 11/27/21 07:21 Troponin I High Sensitivity 18 ng/L (4-75) ASSESSMENT/PLAN Assessment/Plan 1. Falls, recurrent; details unclear. Denies any precipitating dizziness or LOC. CT head without acute findings 2. Arrhythmia; frequent PVC's noted on tele. Patient reports this as chronic. Mg WNL 3. Hypertension; labile this morning 4. Hyperlipidemia 5. H/o TIA, ? dementia 6. COPD, h/o pulmonary blebs, pneumothorax Recommendations Add low-dose BB for arrhythmia suppression TSH pending Will arranged outpatient echo and event monitor Follow up in our office with Dr. Downs as scheduled. GERSON DOWNS MD 11/27/21 1804: CARDIAC CONSULT ASSESSMENT/PLAN Assessment/Plan Patient seen and evaluated. I agree with our pull out operator assessment and plan. Falls, recurrent; details unclear. Denies any precipitating dizziness or LOC. CT head without acute findings Arrhythmia; frequent PVC's noted on tele. Patient reports this as chronic. Mg WNL. Low dose beta waqas. Out pt. monitor and ECHO. Office follow-up. Hypertension; improved. Hyperlipidemia. Continue present treatment. H/o TIA, ? dementia COPD, h/o pulmonary blebs, pneumothorax THEA ALFONSO APRN Nov 27, 2021 08:15 GERSON DOWNS MD Nov 27, 2021 18:04
[2021-11-27] MEDS: BRIMONIDINE 0.2% OPHTH SOLUTION 5ML BOTTLE. OU SCH ×2 (09:30→20:18)
[2021-11-27] MEDS: FINASTERIDE 5 MG TABLET. PO SCH (09:51)
[2021-11-27] MEDS: ASPIRIN ENTERIC COATED 81 MG TABLET.DR. PO SCH (09:52)
[2021-11-27] MEDS: METOPROLOL TART IMMED RELEASE 25 MG TABLET. PO SCH ×2 (09:52→20:18)
[2021-11-27 10:30] VITALS: BP 102/64
--- NOTE | 2021-11-27 13:26 | RAD ---
BILATERAL DUPLEX CAROTID SONOGRAPHY History: Reason: SYNCOPE, RECENT FALLS / Spl. Instructions: / History: Technique: Duplex sonography of the cervical portion of both carotid arteries was performed. Real-stacey e grayscale, color flow Doppler, and Doppler spectral waveform analysis is performed. Findings: Right side: Peak systolic flow velocity of the CCA is 118 cm/sec. Peak systolic flow velocity of the ICA is 124 cm/sec. The ICA/CCA ratio is 1.1. Peak end diastolic flow velocity of the ICA is 12 cm/sec. The peak systolic velocity of the ECA is 142 cm/sec. There is CCA intimal thickening. Left side: Peak systolic flow velocity of the CCA is 96 cm/sec. Peak systolic flow velocity of the ICA is 91 cm/sec. The ICA/CCA ratio is 0.8. Peak end diastolic flow velocity of the ICA is 12 cm/sec. Peak systolic flow velocity of the ECA is 159 cm/sec. Mild echogenic plaque in the carotid bulb. Vertebral arteries: Bilateral vertebral arteries demonstrate antegrade flow. IMPRESSION: No hemodynamically significant internal carotid artery stenosis is identified. PQRS Compliance Statement - Stenosis calculations for CT, MR and conventional angiography are based u justice measurement of the distal ICA diameter in accordance with the NASCET methodology. Stenosis calcu lations for carotid ultrasound studies are derived from validated velocity criteria which are known t o correlate with the NASCET methodology. Electronically signed by: Germán Smith MD (11/27/2021 1:23 PM) [id number]
[2021-11-27 15:09] VITALS: BP 101/54
[2021-11-27 19:00] VITALS: BP 107/64
--- NOTE | 2021-11-27 19:27 | HP ---
DATE OF SERVICE: 11/27/2021 ADMIT DATE: 11/27/2021 HISTORY OF PRESENT ILLNESS: An 81-year-old male came in through the Emergency Room as apparently he had been falling. The patient does not know the cause of the falling. The patient complains of pain in the right chest wall, anterior axillary line. Complains of pain in the hip. Prior to the fall, the patient was using a walker, unable to use the walker. The patient has severe dementia, multiple other falls in the past. The patient came increasingly weakened and as a result of this was brought in through the Emergency Room where he was admitted and found to have possible pneumonia and other problems going on, compression fracture as well. The patient also noted to have an elevated blood pressure. We will continue to monitor on all of these issues as well. PAST MEDICAL HISTORY: Cataracts. He has had TIAs, hypercholesterolemia, hypertension, chest surgery, history of pulmonary blebs, right and left pneumothorax, GERD, urinary retention, T12 compression fracture, depression, alcohol abuse, stopped in 1986. Influenza vaccination up to date. ALLERGIES: MORPHINE. SOCIAL HISTORY: The patient has about a [id number] history of smoking, although he stopped. The patient denies hard drug use and has quit drinking as indicated. The patient is a FULL CODE. REVIEW OF SYSTEMS: The patient denies any headaches, visual change, blurred vision, double vision. Denies chest pain, shortness of breath, abdominal pain. Denies any melena, hematochezia or hematemesis and neurologically baseline where he does have some baseline dementia as indicated. PHYSICAL EXAMINATION: GENERAL: This is a pleasant white male. VITAL SIGNS: Blood pressure was as high as 210/96, respiratory rate 18, pulse 48, afebrile, 95% on room air. HEENT: The patient's head was slightly traumatic, has bumps on the side. Other than that, the patient's eyes were PERRLA. Poor dentition. NECK: Supple without JVD, carotid or thyromegaly. LUNGS: Diminished, poor movement of air. CARDIOVASCULAR: Regular sinus rhythm, S1, S2. I/ systolic ejection murmur. The patient's EKG shows sinus rhythm with a right bundle branch block. The patient otherwise stable there. LABORATORY DATA: Show white count 5, hemoglobin 12, hematocrit 38. Chemistries: 139, 4, 19, 1.3. Albumin 3.1. TSH was normal. Troponins were negative. The patient's tox screen negative. Thyroid is negative. Urine unremarkable. Coags did show elevated D-dimer, but since he was falling, he has excellent oxygen saturation. IMPRESSION: Multiple falls; bradycardia; hypertensive urgency; moderate protein malnutrition; possible pneumonic process; pulmonary nodules; hiatal hernia; prostatomegaly; inguinal hernia, right; compression fracture, chronic. Carotid Dopplers negative. PLAN: The patient continued to be monitored, placed on IV Rocephin. Make further evaluation on him as indicated. DIPIKA/EKT DR: DIPIKA/jonny TID: [id number]
[2021-11-27] MEDS ORDERED: ATORVASTATIN CALCIUM 20 MG TABLET PO SCH (21:00)
[2021-11-27] MEDS ORDERED: LATANOPROST 0.005% OPHTH SOLUTION 2.5ML BOTTLE. OU SCH (21:00)
[2021-11-27 23:00] VITALS: BP 116/68
[2021-11-28 05:00] VITALS: BP 150/81
[2021-11-28 05:57] LABS: BASO # 0.1 x10^3/uL (0.0-0.2); BASO % 1 % (0-3); EOS # 0.3 x10^3/uL (0.0-0.7); EOS % 5 % (0-3); HEMATOCRIT 38.8 % (39.0-53.0); HEMOGLOBIN 12.8 g/dL (13.0-17.5); LYMPH # 1.6 x10^3/uL (1.0-4.8); LYMPH % 27 % (24-48); MEAN CORPUSCULAR HEMOGLOBIN 30 pg (25-35); MEAN CORPUSCULAR HGB CONC 33 g/dL (31-37); MEAN CORPUSCULAR VOLUME 90 fL (79-100); MONO # 0.5 x10^3/uL (0.0-1.1); MONO % 8 % (0-9); NEUT # 3.6 x10^3uL (1.8-7.7); NEUT % 60 % (31-73); PLATELET COUNT 234 x10^3/uL (140-400); RED BLOOD COUNT 4.33 x10^6/uL (4.30-5.70); RED CELL DISTRIBUTION WIDTH 14.2 % (11.5-14.5); WHITE BLOOD COUNT 6.1 x10^3/uL (4.0-11.0)
[2021-11-28 06:03] LABS: CALCIUM 8.5 mg/dL (8.5-10.1); CREATININE 1.2 mg/dL (0.7-1.3)
[2021-11-28] MEDS: FINASTERIDE 5 MG TABLET. PO SCH (08:13)
[2021-11-28] MEDS: BRIMONIDINE 0.2% OPHTH SOLUTION 5ML BOTTLE. OU SCH (08:14)
[2021-11-28] MEDS: METOPROLOL TART IMMED RELEASE 25 MG TABLET. PO SCH (08:14)
[2021-11-28] MEDS: ASPIRIN ENTERIC COATED 81 MG TABLET.DR. PO SCH (08:14)
--- NOTE | 2021-11-28 08:38 | PDOC ---
CARDIO Progress Notes Date & Time Date of Service DATE: 11/28/21 TIME: 08:37 Time of Evaluation 08:37 Subjective Notes No chest pain, dizziness, diaphoresis, or SOA. Feeling well this morning and would like to go home. Vitals Vitals Vital Signs Date Time Temp Pulse Resp B/P (MAP) Pulse Ox O2 Delivery O2 Flow Rate FiO2 11/28/21 08:14 79 150/81 11/28/21 05:00 97.7 18 96 Room Air Weight Weight [ ] Input and Output I.O. Intake and Output 11/28/21 07:00 Intake Total 2170 ml Output Total 200 ml Balance 1970 ml Intake Oral 1120 ml IV Total 1050 ml Output Urine Total 200 ml # Voids 8 Laboratory Labs Laboratory Tests Test 11/26/21 23:44 11/26/21 23:50 11/27/21 02:37 11/27/21 04:00 White Blood Count 5.1 x10^3/uL (4.0-11.0) Red Blood Count 4.37 x10^6/uL (4.30-5.70) Hemoglobin 12.9 g/dL (13.0-17.5) Hematocrit 38.4 % (39.0-53.0) Mean Corpuscular Volume 88 fL (79-100) Mean Corpuscular Hemoglobin 30 pg (25-35) Mean Corpuscular Hemoglobin Concent 34 g/dL (31-37) Red Cell Distribution Width 13.9 % (11.5-14.5) Platelet Count 238 x10^3/uL (140-400) Neutrophils (%) (Auto) 57 % (31-73) Lymphocytes (%) (Auto) 27 % (24-48) Monocytes (%) (Auto) 12 % (0-9) Eosinophils (%) (Auto) 4 % (0-3) Basophils (%) (Auto) 1 % (0-3) Neutrophils # (Auto) 2.9 x10^3uL (1.8-7.7) Lymphocytes # (Auto) 1.4 x10^3/uL (1.0-4.8) Monocytes # (Auto) 0.6 x10^3/uL (0.0-1.1) Eosinophils # (Auto) 0.2 x10^3/uL (0.0-0.7) Basophils # (Auto) 0.1 x10^3/uL (0.0-0.2) Prothrombin Time 10.6 SEC (9.4-11.4) Prothromb Time International Ratio 1.0 (0.9-1.1) Activated Partial Thromboplast Time 24 SEC (23-33) D-Dimer (Gisele) 1.15 mg/L (0.00-0.50) Sodium Level 139 mmol/L (136-145) Potassium Level 4.0 mmol/L (3.5-5.1) Chloride Level 105 mmol/L (98-107) Carbon Dioxide Level 29 mmol/L (21-32) Anion Gap 5 (6-14) Blood Urea Nitrogen 19 mg/dL (8-26) Creatinine 1.3 mg/dL (0.7-1.3) Estimated GFR (Cockcroft-Gault) 52.9 Glucose Level 81 mg/dL (70-99) Calcium Level 8.7 mg/dL (8.5-10.1) Magnesium Level 2.2 mg/dL (1.8-2.4) Total Bilirubin 0.2 mg/dL (0.2-1.0) Direct Bilirubin 0.1 mg/dL (0.0-0.2) Aspartate Amino Transf (AST/SGOT) 22 U/L (15-37) Alanine Aminotransferase (ALT/SGPT) 26 U/L (16-63) Alkaline Phosphatase 91 U/L (46-116) Creatine Kinase 83 U/L (39-308) Troponin I High Sensitivity 15 ng/L (4-75) 15 ng/L (4-75) MH-Pdc-J-Type Natriuretic Peptide 221 pg/mL (0-449) Total Protein 6.7 g/dL (6.4-8.2) Albumin 3.1 g/dL (3.4-5.0) Lipase 158 U/L (73-393) Thyroid Stimulating Hormone (TSH) 2.505 uIU/mL (0.358-3.740) Influenza Type A (Rapid) Negative (NEGATIVE) Influenza Type B (Rapid) Negative (NEGATIVE) SARS-CoV-2 Antigen (Rapid) Negative (NEGATIVE) Urine Collection Type Clean catch Urine Color Yellow Urine Clarity Clear Urine pH 6.0 Urine Specific [place] 1.015 Urine Protein Neg (NEG-TRACE) Urine Glucose (UA) Neg mg/dL (NEG) Urine Ketones (Stick) Neg mg/dL (NEG) Urine Blood Neg (NEG) Urine Nitrite Neg (NEG) Urine Bilirubin Neg (NEG) Urine Urobilinogen Dipstick 0.2 mg/dL (0.2 mg/dL) Urine Leukocyte Esterase Neg (NEG) Urine RBC 0 /HPF (0-2) Urine WBC 0 /HPF (0-4) Urine Squamous Epithelial Cells Occ /LPF Urine Bacteria 0 /HPF (0-FEW) Urine Opiates Screen Neg (NEG) Urine Methadone Screen Neg (NEG) Urine Barbiturates Neg (NEG) Urine Phencyclidine Screen Neg (NEG) Urine Amphetamine/Methamphetamine Neg (NEG) Urine Benzodiazepines Screen Neg (NEG) Urine Cocaine Screen Neg (NEG) Urine Cannabinoids Screen Neg (NEG) Urine Ethyl Alcohol Neg (NEG) Test 11/27/21 07:21 11/28/21 05:35 Troponin I High Sensitivity 18 ng/L (4-75) White Blood Count 6.1 x10^3/uL (4.0-11.0) Red Blood Count 4.33 x10^6/uL (4.30-5.70) Hemoglobin 12.8 g/dL (13.0-17.5) Hematocrit 38.8 % (39.0-53.0) Mean Corpuscular Volume 90 fL (79-100) Mean Corpuscular Hemoglobin 30 pg (25-35) Mean Corpuscular Hemoglobin Concent 33 g/dL (31-37) Red Cell Distribution Width 14.2 % (11.5-14.5) Platelet Count 234 x10^3/uL (140-400) Neutrophils (%) (Auto) 60 % (31-73) Lymphocytes (%) (Auto) 27 % (24-48) Monocytes (%) (Auto) 8 % (0-9) Eosinophils (%) (Auto) 5 % (0-3) Basophils (%) (Auto) 1 % (0-3) Neutrophils # (Auto) 3.6 x10^3uL (1.8-7.7) Lymphocytes # (Auto) 1.6 x10^3/uL (1.0-4.8) Monocytes # (Auto) 0.5 x10^3/uL (0.0-1.1) Eosinophils # (Auto) 0.3 x10^3/uL (0.0-0.7) Basophils # (Auto) 0.1 x10^3/uL (0.0-0.2) Sodium Level 139 mmol/L (136-145) Potassium Level 4.0 mmol/L (3.5-5.1) Chloride Level 105 mmol/L (98-107) Carbon Dioxide Level 28 mmol/L (21-32) Anion Gap 6 (6-14) Blood Urea Nitrogen 14 mg/dL (8-26) Creatinine 1.2 mg/dL (0.7-1.3) Estimated GFR (Cockcroft-Gault) 58.0 Glucose Level 80 mg/dL (70-99) Calcium Level 8.5 mg/dL (8.5-10.1) Physical Exams HEENT: Neck Supple W Full Motion Chest: Symmetric Lungs: Clear to Auscultation Heart: RRR Abdomen: Soft N/T Extremities: No Edema Neurology: alert, oriented, follow commands Assessment Assessment 1. Falls, recurrent; details unclear. Denies any precipitating dizziness or LOC. CT head without acute findings .No acute events on telemetry 2. Arrhythmia; frequent PVC's noted on tele. Patient reports this as chronic. Mg, TSH WNL. Metoprolol added for suppression. Presently SR. 3. Hypertension; controlled overall 4. Hyperlipidemia 5. H/o TIA, ? dementia 6. COPD, h/o pulmonary blebs, pneumothorax Recommendations Low-dose BB for arrhythmia suppression Outpatient echo and event monitor as arranged Follow up in our office with Dr. Mari as scheduled. THEA ALFONSO APRN Nov 28, 2021 08:38
[2021-11-28 12:07] VITALS: BP 99/63
[2021-11-28] MEDS ORDERED: METO25TA4 PO (13:50)
[2021-11-28] MEDS ORDERED: NIFE30TA95 PO (13:50)
--- NOTE | 2021-11-28 13:54 | DISCH ---
HOME HEALTH DISCHARGE/MEDS DISCHARGE INFORMATION: Discharge Date: Nov 28, 2021 Final Diagnosis: Problems Medical Problems: (1) Falling Status: Acute (2) Head injury Status: Acute Arrhythimia/frequent PVCs/bradycardia Condition on Discharge: Stable CODE STATUS: Code Status: Full HOME HEALTH: Face to Face: I certify this patient is under my care and that I, or a nurse practitioner or physician's electrician station assistant working with me, had a face to face encounter that meets the physician face to face encounter requirements with this patient on November 28, 2021. Nursing Home For: Assess Cardiopulm Status, Assess & Educate Safety, Assess/Skilled Observatio, Medication Management Physical Therapy For: Evalulation/Treatment Homebound Status Met By: Unsteady balance w/ amb,, Frequent falls w/ injury POST DISCHARGE ORDERS: Activity Instructions for Disc: Activity as tolerated Weight Bearing Status after Di: No restrictions DIET AFTER DISCHARGE: Cardiac CHECKS AFTER DISCHARGE: Checks after discharge: Check blood press - daily CERTIFICATION STATEMENT: Certification Statement: Based on the above finding, I certify that this patient is confined to the home and needs intermittent alf care, physical therapy and/or speech therapy, or continues to need occupational therapy.~ This patient is under my care, and I have initiated the establishment of the plan of care.~ This patient will be followed by myself or a community physician who will periodically review the plan of care. DISCHARGE MEDICATIONS: Home Meds Reported Medications Aspirin (ASPIRIN EC) 81 Mg Tablet., 1 TAB PO DAILY for heart health, #30 TAB 3 Refills 07/10/21 Latanoprost/Pf (Latanoprost 0.005% Eye Drop) 7.5 Ml Drops, 1 DROP OU QHS for GLAUCOMA, DROP 07/10/21 Brimonidine Tartrate (BRIMONIDINE TARTRATE) 5 Ml Drops, 1 DROP EACHEYE BID for glaucoma, #10 ML 0 Refills 07/10/21 Finasteride (FINASTERIDE) 5 Mg Tablet, 1 TAB PO DAILY for bph, #30 TAB 11 Refills 07/10/21 Atorvastatin Calcium (ATORVASTATIN CALCIUM) 80 Mg Tablet, 80 MG PO QHS for FOR CHOLESTEROL, #30 TAB 0 Refills 07/10/21 KRISTIE POSEY MD Nov 28, 2021 13:54
== END 2021-11-28 14:45 | disposition home health service (06) ==
LOC: ER 23:01 → ER HOLD 11-27 02:36 → INTOOBSV 11-27 02:36 → 1 SOUTH 11-27 02:37
PROVIDERS: ADMIT Family Medicine; ATTEND Family Medicine
DX: S09.90XA Unspecified injury of head, initial encounter (principal); Z20.822 Contact with and (suspected) exposure to COVID-19; S20.211A Contusion of right front wall of thorax, initial encounter; S70.01XA Contusion of right hip, initial encounter; I16.0 Hypertensive urgency; M48.54XA Collapsed vertebra, not elsewhere classified, thoracic region, initial encounter for fracture; E44.0 Moderate protein-calorie malnutrition; D64.9 Anemia, unspecified; E78.00 Pure hypercholesterolemia, unspecified; E78.5 Hyperlipidemia, unspecified; I10 Essential (primary) hypertension; I49.3 Ventricular premature depolarization; F03.90 Unspecified dementia, unspecified severity, without behavioral disturbance, psychotic disturbance, mood disturbance, and anxiety; J44.9 Chronic obstructive pulmonary disease, unspecified; K40.90 Unilateral inguinal hernia, without obstruction or gangrene, not specified as recurrent; K44.9 Diaphragmatic hernia without obstruction or gangrene; N21.0 Calculus in bladder; R29.6 Repeated falls; Z86.73 Personal history of transient ischemic attack (TIA), and cerebral infarction without residual deficits; Z87.891 Personal history of nicotine dependence; Z79.899 Other long term (current) drug therapy; Z98.890 Other specified postprocedural states; Z79.82 Long term (current) use of aspirin; W19.XXXA Unspecified fall, initial encounter; Y92.89 Other specified places as the place of occurrence of the external cause; Y93.89 Activity, other specified; Y99.8 Other external cause status
CPT/HCPCS: 36415; 70450; 71045; 71260; 72125; 73552; 74177; 80048; 80076; 80307; 81001; 82550; 83690; 83735; 83880; 84443; 84484; 85025; 85379; 85610; 85730; 87428; 93005; 93880; 96365; 97110; 97116; 97161; 97165; 97530; 99285; G0378; J0696; J7120; U0003; G0379

== ENCOUNTER → 2021-12-18 | Outpatient (CLI) | payer MEDICARE ==
[2021-11-28 12:07] VITALS: BP 99/63
[~2021-12-18] MED LIST changes: +METO25TA4 PO; +NIFE30TA95 PO
--- NOTE | 2021-12-18 16:59 | CARD ---
MR#: [id number] Date of Study: 12/18/2021 Ordering Physician: GERSON DOWNS, Referring Physician: GERSON DOWNS, Tech: Jed Herrera [facility] APPROVED REPORT EXAM: Two-dimensional and M-mode echocardiogram with Doppler and color Doppler. Other Information Quality : FairHR: 90bpm Rhythm : NSRPVC's INDICATION Arrhythmia RISK FACTORS Hypertension Smoking 2D DIMENSIONS Left Atrium(2D)2.8 (1.6-4.0cm)IVSd1.0 (0.7-1.1cm) Aortic Root(2D)3.3 (2.0-3.7cm)LVDd4.2 (3.9-5.9cm) LVOT Diameter2.1 (1.8-2.4cm)PWd1.0 (0.7-1.1cm) LVDs2.6 (2.5-4.0cm)FS (%) 37.3 % SV53.1 mlLVEF(%)67.7 (>50%) Aortic Valve AoV Peak Gal.128.1cm/sAoV VTI20.4cm AO Peak GR.6.6mmHgLVOT Peak Gal.130.4cm/s LVOT VTI 22.11cmAO Mean GR.3mmHg DAVID (VMAX)3.08fp4OLC (VTI)3.62cm2 Mitral Valve MV E Fzttpohy47.0cm/sMV E Peak Gr.4mmHg MV DECEL [id number] A Bdyxbkqg97.0cm/s MV E Mean Gr.1mmHgE/A Ratio0.6 Pulmonary Valve PV Peak Naepitqu929.2cm/sPV Peak Grad.4mmHg Tricuspid Valve TR P. Wznmwctl689yl/sTR Peak Gr.29mmHg Pulmonary Vein S1 Oadkpqim83.3cm/sD2 Sbnnwuui27.3cm/s LEFT VENTRICLE The left ventricle is normal size. There is normal left ventricular wall thickness. The left ventricu lar systolic function is normal and the ejection fraction is within normal range. EF 55% There is nor mal LV segmental wall motion. Transmitral Doppler flow pattern is Grade I-abnormal relaxation pattern . No left ventricle thrombus noted on this study. There is no ventricular septal defect visualized. T here is no left ventricular aneurysm. There is no mass noted in the left ventricle. RIGHT VENTRICLE The right ventricle is normal size. There is normal right ventricular wall thickness. The right ventr icular systolic function is normal. ATRIA The left atrium size is normal. The right atrium size is normal. The interatrial septum is intact wit h no evidence for an atrial septal defect or patent foramen ovale as noted on 2-D or Doppler imaging. AORTIC VALVE The aortic valve is mildly sclerotic. Doppler and Color Flow revealed no significant aortic regurgita tion. There is no significant aortic valvular stenosis. There is no aortic valvular vegetation. MITRAL VALVE The mitral valve is normal in structure and function. There is no evidence of mitral valve prolapse. There is no mitral valve stenosis. Doppler and Color Flow revealed no mitral valve regurgitation note d. TRICUSPID VALVE The tricuspid valve leaflets are thickened , but open well. Doppler and Color Flow revealed trace to mild tricuspid regurgitation. The PA pressure was estimated at 34 mmHg. There is no tricuspid valve p rolapse or vegetation. There is no tricuspid valve stenosis. PULMONIC VALVE Doppler and Color Flow revealed no pulmonic valvular regurgitation. There is no pulmonic valvular marcus nosis. GREAT VESSELS The aortic root is normal in size. The ascending aorta is normal in size. The IVC is normal in size a nd collapses >50% with inspiration. PERICARDIAL EFFUSION There is no pleural effusion. There is no evidence of significant pericardial effusion. Critical Notification Critical Value: No <Conclusion> The left ventricular systolic function is normal and the ejection fraction is within normal range. EF 55% There is normal LV segmental wall motion. Signed by : Jatinder Don, Electronically Approved : 12/18/2021 16:59:29
== END ==
LOC: ECHO 10:39
PROVIDERS: ATTEND Internal Medicine Cardiovascular Disease
DX: I08.2 Rheumatic disorders of both aortic and tricuspid valves (principal); I49.9 Cardiac arrhythmia, unspecified
CPT/HCPCS: 93306

== ENCOUNTER 2022-01-22 16:24 | Observation (INO) | payer MEDICARE ==
[~2022-01-22] VITALS: Ht 175.3 cm; Wt 67.1 kg
[2022-01-22 17:23] LABS: BASO # 0.1 x10^3/uL (0.0-0.2); BASO % 1 % (0-3); EOS # 0.2 x10^3/uL (0.0-0.7); EOS % 2 % (0-3); HEMATOCRIT 40.5 % (39.0-53.0); HEMOGLOBIN 13.6 g/dL (13.0-17.5); LYMPH # 1.7 x10^3/uL (1.0-4.8); LYMPH % 22 % (24-48); MEAN CORPUSCULAR HEMOGLOBIN 30 pg (25-35); MEAN CORPUSCULAR HGB CONC 34 g/dL (31-37); MEAN CORPUSCULAR VOLUME 88 fL (79-100); MONO # 0.7 x10^3/uL (0.0-1.1); MONO % 10 % (0-9); NEUT # 4.9 x10^3uL (1.8-7.7); NEUT % 65 % (31-73); PLATELET COUNT 259 x10^3/uL (140-400); RED BLOOD COUNT 4.59 x10^6/uL (4.30-5.70); RED CELL DISTRIBUTION WIDTH 13.9 % (11.5-14.5); WHITE BLOOD COUNT 7.6 x10^3/uL (4.0-11.0)
[2022-01-22 17:29] LABS: CALCIUM 9.3 mg/dL (8.5-10.1); CREATININE 1.3 mg/dL (0.7-1.3); GFR 52.9; POTASSIUM 4.1 mmol/L (3.5-5.1)
[2022-01-22 17:35] LABS: ALBUMIN 3.3 g/dL (3.4-5.0); ALBUMIN/GLOBULIN RATIO 0.9 (1.0-1.7); TOTAL BILIRUBIN 0.6 mg/dL (0.2-1.0); TOTAL PROTEIN 7.1 g/dL (6.4-8.2)
--- NOTE | 2022-01-22 17:52 | RAD ---
Exam: Chest one view INDICATION: Chest pain TECHNIQUE: Frontal view of the chest Comparisons: None FINDINGS: The cardiomediastinal silhouette and pulmonary vessels are within normal limits. Strandy opacities at the right lung base. No pleural effusion. IMPRESSION: Strandy right basilar airspace disease may relate to atelectasis. Electronically signed by: Seble Muñoz MD (01/22/2022 5:49 PM) [facility]
--- NOTE | 2022-01-22 17:58 | PHYS DOC ---
Past History Additional Past Medical Histor: pneumothorax, epiditimitis,nodules in lungs (GAVIOTA SIDDIQUI APRN) Past Surgical History: Pneumothorax, Other Additional Past Surgical Histo: lungs glued to chest wall, surg for epiditimitis (GAVIOTA SIDDIQUI APRN) Alcohol Use: None (GAVIOTA SIDDIQUI APRN) General Adult EDM: Chief Complaint: CHEST PAIN HPI: HPI: Patient is a 81-year-old male who presents with chest pain that started at 6 AM this morning. Patient states when he woke up this morning he stood up and could feel pain in the middle of his chest. Pain also in left flank. Pain is not reproducible. Patient is also reporting nausea off and on. Patient denies any pain at this time. No dizziness. Denies taking anything prior to arrival for discomfort. (GAVIOTA SIDDIQUI APRN) Review of Systems: Review of Systems: ROS At least 10 ROS systems have been reviewed and are negative except as documented in the HPI. General: Negative except as outlined in HPI above. Skin: Negative except as outlined in HPI above. HEENT: Negative except as outlined in HPI above. Neck: Negative except as outlined in HPI above. Respiratory: Negative except as outlined in HPI above.. Cardiovascular: Negative except as outlined in HPI above. Abdomen: Negative except as outlined in HPI above. : Negative except as outlined in HPI above. Back/MSK: Negative except as outlined in HPI above. Neuro: Negative except as outlined in HPI above. Psych: Negative except as outlined in HPI above. (GAVIOAT SIDDIQUI APRN) Allergies: Allergies: Allergies Coded Allergies Type Severity Reaction Last Updated Verified morphine Allergy Unknown 01/22/22 Yes (GAVIOTA SIDDIQUI APRN) Physical Exam: PE: Constitutional: Well developed, well nourished, no acute distress, non-toxic appearance. [] HENT: Normocephalic, atraumatic, bilateral external ears normal, oropharynx moist, no oral exudates, nose normal. [] Eyes: PERRLA, EOMI, conjunctiva normal, no discharge. [] Neck: Normal range of motion, no tenderness, supple, no stridor. [] Cardiovascular:Heart rate regular rhythm, no murmur [] Lungs & Thorax: Bilateral breath sounds clear to auscultation, no wheezing Abdomen: Bowel sounds normal, soft, no tenderness, no masses, no pulsatile masses. [] Skin: Warm, dry, no erythema, no rash. [] Back: No tenderness, no CVA tenderness. [] Extremities: No tenderness, no cyanosis, no clubbing, ROM intact, no edema. [] Neurologic: Alert and oriented X 3, normal motor function, normal sensory function, no focal deficits noted. [] Psychologic: Affect normal, judgement normal, mood normal. [] (GAVIOTA SIDDIQUI APRN) Current Patient Data: Labs: Laboratory Tests Test 01/22/22 16:45 White Blood Count 7.6 x10^3/uL (4.0-11.0) Red Blood Count 4.59 x10^6/uL (4.30-5.70) Hemoglobin 13.6 g/dL (13.0-17.5) Hematocrit 40.5 % (39.0-53.0) Mean Corpuscular Volume 88 fL (79-100) Mean Corpuscular Hemoglobin 30 pg (25-35) Mean Corpuscular Hemoglobin Concent 34 g/dL (31-37) Red Cell Distribution Width 13.9 % (11.5-14.5) Platelet Count 259 x10^3/uL (140-400) Neutrophils (%) (Auto) 65 % (31-73) Lymphocytes (%) (Auto) 22 % (24-48) L Monocytes (%) (Auto) 10 % (0-9) H Eosinophils (%) (Auto) 2 % (0-3) Basophils (%) (Auto) 1 % (0-3) Neutrophils # (Auto) 4.9 x10^3uL (1.8-7.7) Lymphocytes # (Auto) 1.7 x10^3/uL (1.0-4.8) Monocytes # (Auto) 0.7 x10^3/uL (0.0-1.1) Eosinophils # (Auto) 0.2 x10^3/uL (0.0-0.7) Basophils # (Auto) 0.1 x10^3/uL (0.0-0.2) Sodium Level 137 mmol/L (136-145) Potassium Level 4.1 mmol/L (3.5-5.1) Chloride Level 102 mmol/L (98-107) Carbon Dioxide Level 30 mmol/L (21-32) Anion Gap 5 (6-14) L Blood Urea Nitrogen 19 mg/dL (8-26) Creatinine 1.3 mg/dL (0.7-1.3) Estimated GFR (Cockcroft-Gault) 52.9 BUN/Creatinine Ratio 15 (6-20) Glucose Level 97 mg/dL (70-99) Calcium Level 9.3 mg/dL (8.5-10.1) Total Bilirubin 0.6 mg/dL (0.2-1.0) Aspartate Amino Transferase (AST) 15 U/L (15-37) Alanine Aminotransferase (ALT) 21 U/L (16-63) Alkaline Phosphatase 127 U/L (46-116) H Troponin I High Sensitivity 10 ng/L (4-75) Total Protein 7.1 g/dL (6.4-8.2) Albumin 3.3 g/dL (3.4-5.0) L Albumin/Globulin Ratio 0.9 (1.0-1.7) L Vital Signs: Vital Signs Date Time Temp Pulse Resp B/P (MAP) Pulse Ox O2 Delivery O2 Flow Rate FiO2 01/22/22 16:30 98.4 73 20 150/70 (96) 98 Room Air (GAVIOTA SIDDIQUI APRN) EKG: EKG: [] (GAVIOTA SIDDIQUI APRN) Radiology/Procedures: Radiology/Procedures: []Exam: Chest one view INDICATION: Chest pain TECHNIQUE: Frontal view of the chest Comparisons: None FINDINGS: The cardiomediastinal silhouette and pulmonary vessels are within normal limits. Strandy opacities at the right lung base. No pleural effusion. IMPRESSION: Strandy right basilar airspace disease may relate to atelectasis. Electronically signed by: Seble Muñoz MD (01/22/2022 5:49 PM) [facility] (GAVIOTA SIDDIQUI APRN) Heart Score: C/O Chest Pain: Yes HEART Score for Chest Pain: HEART Score for Chest Pain Response (Comments) Value History Highly Suspicious 2 ECG Nonspecific Repolarizatio 1 Age < 45 0 Risk Factors 1 or 2 Risk Factors 1 Troponin < Normal Limit 0 Total 4 Risk Factors: Risk Factors: DM, Current or recent (<one month) smoker, HTN, HLP, family history of CAD, obesity. Risk Scores: Score 0 - 3: 2.5% MACE over next 6 weeks - Discharge Home Score 4 - 6: 20.3% MACE over next 6 weeks - Admit for Clinical Observation Score 7 - 10: 72.7% MACE over next 6 weeks - Early Invasive Strategies (GAVIOTA SIDDIQUI APRN) Course & Med Decision Making: Course & Med Decision Making Pertinent Labs and Imaging studies reviewed. (See chart for details) [] 81-year-old male presents with chest pain that started at 6 AM this morning. Patient is also reporting pain in his left flank. Denies abdominal pain. Patient states that pain is intermittent and also has some nausea with it. Work-up in ER consist of CBC, CMP, troponin, chest x-ray. All labs unremarkable. Troponin is negative. Chest x-ray is negative for acute findings. Heart score of 4. Patient will be admitted for further management due to high risk. Patient currently sees Dr. Juares. Spoke with Dr. Juares who will be excepting for inpatient. Patient seen to be admitted for chest pain. (GAVIOTA SIDDIQUI APRN) Dragon Disclaimer: Dragon Disclaimer: This electronic medical record was generated, in whole or in part, using a voice recognition dictation system. (GAVIOTA SIDDIQUI APRN) Attending Co-Sign The patient was seen and interviewed as well as examined at the bedside. The chart was reviewed. The case was discussed. Agree with the plan of care. (BERTHA BAUGH DO) Departure Departure: Impression: Primary Impression: Chest pain Qualified Codes: R07.9 - Chest pain, unspecified Additional Impression: Flank pain Disposition: ADMITTED INPATIENT Admitting Physician: Kristie Posey (GAVIOTA SIDDIQUI APRN) Condition: STABLE Referrals: KRISTIE POSEY MD (PCP) Scripts Sennosides/Docusate Sodium (Stool Softener-Stimulant Lax) 1 Each Tablet 2 TAB PO PRN BID PRN for CONSTIPATION, #120 TAB 9 Refills Prov: KRISTIE POSEY MD 01/24/22 GAVIOTA SIDDIQUI APRN January 22, 2022 17:58 BERTHA BAUGH DO January 24, 2022 20:50
[2022-01-22 18:12] LABS: CLARITY,URINE CLEAR; COLOR,URINE YELLOW; GLUCOSE,URINE NEG (NEG); NITRITE,URINE NEG (NEG); RBC,URINE OCC /HPF (0-2)
[2022-01-22 18:13] LABS: BACTERIA,URINE 0 /HPF (0-FEW); SQUAMOUS EPITHELIAL CELL,UR OCC /LPF; WBC,URINE OCC /HPF (0-4)
[2022-01-22 22:05] VITALS: BP 181/80
[2022-01-22] MEDS: ACETAMINOPHEN 500 MG TABLET PO PRN (22:31)
--- NOTE | 2022-01-23 01:29 | EKG ---
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
[2022-01-23 05:57] VITALS: BP 152/82
[2022-01-23] MEDS: ACETAMINOPHEN 500 MG TABLET PO PRN ×2 (07:18→20:00)
--- NOTE | 2022-01-23 07:59 | PDOC2 ---
CARDIAC CONSULT DATE OF CONSULT DOS: DATE: 01/23/22 TIME: 07:54 REASON FOR CONSULT Reason for Consult Chest pain REFERRING PHYSICIAN Referring Physician Dr. POSEY SOURCE Source: Chart review, Patient HPI History of Present Illness This is an 81-year-old male who presented with left flank pain and pain in his central chest. Patient reports he woke yesterday morning with pain in his left pain. Also noted a dull ache in his central chest. Pain did not radiate. No associated shortness of breath, dizziness, diaphoresis, or nausea/vomiting. Pain in chest resolved in a couple of hours, but flank pain persisted and seemed to worsen so he came to the ED for further evaluation and treatment. Has has not further chest pain overnight. PAST MEDICAL HISTORY Cardiovascular: HTN, hyperipidemia Pulmonary: COPD, Other (pneumothorax, pulmonary blebs,) CENTRAL NERVOUS SYSTEM: Dementia GI: GERD Psych: Depression Musculoskeletal: Osteoarthritis Renal/: Benign prostatic enlarg., Other (retention) PAST SURGICAL HISTORY Past Surgical History: Cataract Removal FAMILY HISTORY Family History: Family History Unknown SOCIAL HISTORY Social History Smoke: Quit ALCOHOL: none Drugs: None Lives: with Family CURRENT MEDICATIONS Current Medications Current Medications Acetaminophen (Tylenol) 1,000 mg PRN Q6HRS PRN PO MILD PAIN / TEMP > 100.3'F Last administered on 01/23/22at 07:18; Start 01/22/22 at 22:00 Active Scripts Active Nifedipine Er (Nifedipine) 30 Mg Tab.er.24 30 Mg PO DAILY 30 Days Metoprolol Tartrate 25 Mg Tablet 25 Mg PO BID 30 Days Reported Aspirin Ec (Aspirin) 81 Mg Tablet. 1 Tab PO DAILY Latanoprost 0.005% Eye Drop (Latanoprost/Pf) 7.5 Ml Drops 1 Drop OU QHS Brimonidine Tartrate 5 Ml Drops 1 Drop EACHEYE BID Finasteride 5 Mg Tablet 1 Tab PO DAILY Atorvastatin Calcium 80 Mg Tablet 80 Mg PO QHS ALLERGIES Allergies: Coded Allergies: morphine (Verified Allergy, Unknown, 01/22/22) ROS Review of Systems 14 point R OS conducted with pertinent positives noted above in HPI PHYSICAL EXAM Physical Exam General: Alert, Cooperative, No acute distress HEENT: Atraumatic Lungs: Clear to auscultation Heart: Regular rate Abdomen: Soft, No tenderness Extremities: No edema Skin: No breakdown Neuro: Normal speech, Sensation intact Psych/Mental Status: Mood NL, MUSCULOSKELETAL: Osteoarthritic changes both hands VITALS Vital Signs Vital Signs Date Time Temp Pulse Resp B/P (MAP) Pulse Ox O2 Delivery O2 Flow Rate FiO2 01/23/22 05:57 97.7 87 20 152/82 (105) 98 Room Air LABS LABS Laboratory Tests Test 01/22/22 16:45 01/22/22 16:53 01/22/22 22:19 01/23/22 05:44 White Blood Count 7.6 x10^3/uL (4.0-11.0) Red Blood Count 4.59 x10^6/uL (4.30-5.70) Hemoglobin 13.6 g/dL (13.0-17.5) Hematocrit 40.5 % (39.0-53.0) Mean Corpuscular Volume 88 fL (79-100) Mean Corpuscular Hemoglobin 30 pg (25-35) Mean Corpuscular Hemoglobin Concent 34 g/dL (31-37) Red Cell Distribution Width 13.9 % (11.5-14.5) Platelet Count 259 x10^3/uL (140-400) Neutrophils (%) (Auto) 65 % (31-73) Lymphocytes (%) (Auto) 22 % (24-48) Monocytes (%) (Auto) 10 % (0-9) Eosinophils (%) (Auto) 2 % (0-3) Basophils (%) (Auto) 1 % (0-3) Neutrophils # (Auto) 4.9 x10^3uL (1.8-7.7) Lymphocytes # (Auto) 1.7 x10^3/uL (1.0-4.8) Monocytes # (Auto) 0.7 x10^3/uL (0.0-1.1) Eosinophils # (Auto) 0.2 x10^3/uL (0.0-0.7) Basophils # (Auto) 0.1 x10^3/uL (0.0-0.2) Sodium Level 137 mmol/L (136-145) Potassium Level 4.1 mmol/L (3.5-5.1) Chloride Level 102 mmol/L (98-107) Carbon Dioxide Level 30 mmol/L (21-32) Anion Gap 5 (6-14) Blood Urea Nitrogen 19 mg/dL (8-26) Creatinine 1.3 mg/dL (0.7-1.3) Estimated GFR (Cockcroft-Gault) 52.9 BUN/Creatinine Ratio 15 (6-20) Glucose Level 97 mg/dL (70-99) Calcium Level 9.3 mg/dL (8.5-10.1) Total Bilirubin 0.6 mg/dL (0.2-1.0) Aspartate Amino Transf (AST/SGOT) 15 U/L (15-37) Alanine Aminotransferase (ALT/SGPT) 21 U/L (16-63) Alkaline Phosphatase 127 U/L (46-116) Troponin I High Sensitivity 10 ng/L (4-75) 10 ng/L (4-75) 9 ng/L (4-75) Total Protein 7.1 g/dL (6.4-8.2) Albumin 3.3 g/dL (3.4-5.0) Albumin/Globulin Ratio 0.9 (1.0-1.7) Urine Collection Type Unknown Urine Color Yellow Urine Clarity Clear Urine pH 6.5 Urine Specific [place] 1.025 Urine Protein 30 mg/dl (NEG-TRACE) Urine Glucose (UA) Neg mg/dL (NEG) Urine Ketones (Stick) Neg mg/dL (NEG) Urine Blood Neg (NEG) Urine Nitrite Neg (NEG) Urine Bilirubin Neg (NEG) Urine Urobilinogen Dipstick 1.0 mg/dL (0.2 mg/dL) Urine Leukocyte Esterase Neg (NEG) Urine RBC Occ /HPF (0-2) Urine WBC Occ /HPF (0-4) Urine Squamous Epithelial Cells Occ /LPF Urine Bacteria 0 /HPF (0-FEW) Urine Mucus Slight /LPF ECHOCARDIOGRAM Echocardiogram <Conclusion> The left ventricular systolic function is normal and the ejection fraction is within normal range. EF 55% There is normal LV segmental wall motion. DATE: 12/18/21 1147 ASSESSMENT/PLAN Assessment/Plan 1. Chest pain, atypical; AMI ruled out. Recent echo with LVEF 55%, no WMA 2. Left flank pain 3. Hypertension; labile 4. Hyperlipidemia; statin 5. GERD 6. H/o TIA, dementia 7. COPD, h/o pulmonary blebs, pneumothorax 8. H/o frequent PVC's; recent event monitor without significant arrhythmias. ventricular ectopy was noted 9. Chronic RBBB Recommendations Resume ASA, statin, home antiHTN therapy Low-dose BB for arrhythmia suppression Will arranged outpatient ischemic evaluation and follow up in our office with THEA Haile APRN January 23, 2022 07:59
[2022-01-23] MEDS: ASPIRIN ENTERIC COATED 81 MG TABLET.DR. PO SCH (10:41)
[2022-01-23] MEDS: FINASTERIDE 5 MG TABLET. PO SCH (10:41)
[2022-01-23] MEDS: METOPROLOL TART IMMED RELEASE 25 MG TABLET. PO SCH ×2 (10:42→20:01)
[2022-01-23] MEDS: BRIMONIDINE 0.2% OPHTH SOLUTION 5ML BOTTLE. OU SCH ×2 (10:43→20:01)
[2022-01-23 11:22] VITALS: BP 145/75
--- NOTE | 2022-01-23 14:03 | HP ---
DATE OF SERVICE: 01/23/2022 ADMIT DATE: 01/22/2022 HISTORY OF PRESENT ILLNESS: An 81-year-old gentleman came in initially with left flank pain, but also complained of some chest pain and elevated blood pressures in the 180 range. As a result of this, the patient was admitted for rule out ME protocol as well as continued to be monitored on this left flank pain, which he has had for a couple of days. Nothing seems to make it better, worse except when he moves, does seem to aggravate the whole situation. The patient does not have any problems urinating. He reports no nausea or vomiting, but the pain is 8-9/10. 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 Vaccinations up to date for influenza. ALLERGIES: MORPHINE. SOCIAL HISTORY: The patient has a distant history of smoking. Denies alcohol use. The patient otherwise is full code. REVIEW OF SYSTEMS: He denies any headaches, visual change, blurred vision, double vision. The patient's chest pain presently is much improved and not having any problems there. The patient rule out ME protocol. He has looked very good on their regard there. The patient denies any problem with bowels or bladder. He denies any constipation, melena, hematochezia, hematemesis or nocturia per se. PHYSICAL EXAMINATION: GENERAL: This is a frail-appearing white male, looking his stated age, but very frail appearing. VITAL SIGNS: Blood pressure 180/80 as noted, came down to 140/70; respiratory rate 20; pulse 80; afebrile; 97% on room air. HEENT: The patient's head was atraumatic, normocephalic. Eyes: PERRLA without jaundice. Poor dentition. NECK: Supple. LUNGS: Clear. CARDIOVASCULAR: Regular sinus rhythm. ABDOMEN: Soft, diffuse tenderness in left flank area. Some guarding, but no rebounding, positive bowel sounds, no hepatosplenomegaly. Hemoccult negative. EXTREMITIES: No clubbing, cyanosis, nor edema. NEUROLOGIC: The patient was alert and oriented x 3, baseline for him. MEDICATIONS: Include Xalatan 1 drop each eye at bedtime, Lipitor 80, nifedipine 30 mg daily, metoprolol 25, Proscar 5, Alphagan and aspirin. IMPRESSION: Therefore, chest pain, rule out myocardial infarction, high risk for such left flank pain. PLAN: Continue to monitor the patient accordingly. Get the CT scan abdomen and pelvis, make further evaluation on him as indicated. Continue home meds. Bring his blood pressure down under control and await CT report on that flank pain. YAYA DR: Sol TID: [id number]
[2022-01-23 15:11] VITALS: BP 118/67
--- NOTE | 2022-01-23 15:16 | RAD ---
Exam: CT of abdomen and pelvis without contrast INDICATION: Right flank pain, Back pain TECHNIQUE: Sequential axial images through the abdomen and pelvis obtained without IV contrast. Sagit oscar and coronal reformatted images were reconstructed from the axial data and reviewed. Exposure: One or more of the following in the visualized dose reduction techniques were utilized for this examination: 1. Automated exposure control 2. Adjustment of the MA and/or KV according to patient size 3. Use of iterative of reconstructive technique Comparisons: 11/26/2021 FINDINGS: Heart size is normal. No pericardial effusion. Strandy opacities the dependent portion lungs likely r epresenting atelectasis. No pleural effusion. Evaluation of solid organs limited secondary to noncontrast technique. Liver, spleen, pancreas, gallbladder and adrenals are unremarkable. No perinephric inflammation or hydronephrosis. Nonobstructing left renal calculus is noted. No ureter al calculi are seen. Bladder is partially distended and not well evaluated. Prostate is not enlarged. Moderate amount stool noted in the colon. Appendix is nonidentified. No free intra-abdominal air or f luid. No obstruction. Abdominal aorta has normal course and caliber. No enlarged intra-abdominal lymph nodes are identified. No suspicious osseous lesions or acute fractures. IMPRESSION: 1. Moderate amount stool in colon, correlate for constipation. 2. Nonobstructing left renal calculus. No ureteral calculi or evidence for obstructive uropathy. Electronically signed by: Seble Mñuoz MD (01/23/2022 3:13 PM) [facility]
[2022-01-23 19:36] VITALS: BP 123/71
[2022-01-23] MEDS: SENNOSIDES/DOCUSATE 8.6/50MG TABLET. PO PRN (20:00)
[2022-01-23] MEDS ORDERED: ATORVASTATIN CALCIUM 20 MG TABLET PO SCH (21:00)
[2022-01-23] MEDS ORDERED: LATANOPROST 0.005% OPHTH SOLUTION 2.5ML BOTTLE. OU SCH (21:00)
[2022-01-23 23:14] VITALS: BP 106/64
[2022-01-24 05:56] VITALS: BP 125/73
[2022-01-24] MEDS: ASPIRIN ENTERIC COATED 81 MG TABLET.DR. PO SCH (08:10)
[2022-01-24] MEDS: METOPROLOL TART IMMED RELEASE 25 MG TABLET. PO SCH (08:10)
[2022-01-24] MEDS: FINASTERIDE 5 MG TABLET. PO SCH (08:10)
[2022-01-24] MEDS: ACETAMINOPHEN 500 MG TABLET PO PRN (08:10)
[2022-01-24] MEDS: SENNOSIDES/DOCUSATE 8.6/50MG TABLET. PO PRN (08:10)
[2022-01-24 08:11] VITALS: BP 125/73
[2022-01-24] MEDS: BRIMONIDINE 0.2% OPHTH SOLUTION 5ML BOTTLE. OU SCH (08:11)
--- NOTE | 2022-01-24 08:17 | PDOC ---
CARDIO Progress Notes Date & Time Date of Service DATE: 01/24/22 TIME: 08:15 Time of Evaluation 08:00 Subjective Notes No chest pain, palpitations, dizziness, diaphoresis, or SOA Vitals Vitals Vital Signs Date Time Temp Pulse Resp B/P (MAP) Pulse Ox O2 Delivery O2 Flow Rate FiO2 01/24/22 08:11 64 125/73 01/24/22 05:56 97.6 18 96 Room Air Weight Weight [ ] Input and Output I.O. Intake and Output 01/24/22 06:59 Intake Total 1640 ml Balance 1640 ml Intake Oral 1640 ml # Voids 4 Laboratory Labs Laboratory Tests Test 01/22/22 16:45 01/22/22 16:53 01/22/22 22:19 01/23/22 05:44 White Blood Count 7.6 x10^3/uL (4.0-11.0) Red Blood Count 4.59 x10^6/uL (4.30-5.70) Hemoglobin 13.6 g/dL (13.0-17.5) Hematocrit 40.5 % (39.0-53.0) Mean Corpuscular Volume 88 fL (79-100) Mean Corpuscular Hemoglobin 30 pg (25-35) Mean Corpuscular Hemoglobin Concent 34 g/dL (31-37) Red Cell Distribution Width 13.9 % (11.5-14.5) Platelet Count 259 x10^3/uL (140-400) Neutrophils (%) (Auto) 65 % (31-73) Lymphocytes (%) (Auto) 22 % (24-48) Monocytes (%) (Auto) 10 % (0-9) Eosinophils (%) (Auto) 2 % (0-3) Basophils (%) (Auto) 1 % (0-3) Neutrophils # (Auto) 4.9 x10^3uL (1.8-7.7) Lymphocytes # (Auto) 1.7 x10^3/uL (1.0-4.8) Monocytes # (Auto) 0.7 x10^3/uL (0.0-1.1) Eosinophils # (Auto) 0.2 x10^3/uL (0.0-0.7) Basophils # (Auto) 0.1 x10^3/uL (0.0-0.2) Sodium Level 137 mmol/L (136-145) Potassium Level 4.1 mmol/L (3.5-5.1) Chloride Level 102 mmol/L (98-107) Carbon Dioxide Level 30 mmol/L (21-32) Anion Gap 5 (6-14) Blood Urea Nitrogen 19 mg/dL (8-26) Creatinine 1.3 mg/dL (0.7-1.3) Estimated GFR (Cockcroft-Gault) 52.9 BUN/Creatinine Ratio 15 (6-20) Glucose Level 97 mg/dL (70-99) Calcium Level 9.3 mg/dL (8.5-10.1) Total Bilirubin 0.6 mg/dL (0.2-1.0) Aspartate Amino Transf (AST/SGOT) 15 U/L (15-37) Alanine Aminotransferase (ALT/SGPT) 21 U/L (16-63) Alkaline Phosphatase 127 U/L (46-116) Troponin I High Sensitivity 10 ng/L (4-75) 10 ng/L (4-75) 9 ng/L (4-75) Total Protein 7.1 g/dL (6.4-8.2) Albumin 3.3 g/dL (3.4-5.0) Albumin/Globulin Ratio 0.9 (1.0-1.7) Urine Collection Type Unknown Urine Color Yellow Urine Clarity Clear Urine pH 6.5 Urine Specific [place] 1.025 Urine Protein 30 mg/dl (NEG-TRACE) Urine Glucose (UA) Neg mg/dL (NEG) Urine Ketones (Stick) Neg mg/dL (NEG) Urine Blood Neg (NEG) Urine Nitrite Neg (NEG) Urine Bilirubin Neg (NEG) Urine Urobilinogen Dipstick 1.0 mg/dL (0.2 mg/dL) Urine Leukocyte Esterase Neg (NEG) Urine RBC Occ /HPF (0-2) Urine WBC Occ /HPF (0-4) Urine Squamous Epithelial Cells Occ /LPF Urine Bacteria 0 /HPF (0-FEW) Urine Mucus Slight /LPF Test 01/23/22 07:45 Coronavirus (COVID-19)(PCR) Not detected (NOT DETECTD) SARS-CoV-2 Antigen (Rapid) Negative (NEGATIVE) Physical Exams HEENT: Neck Supple W Full Motion Chest: Symmetric Lungs: Clear to Auscultation Heart: RRR Abdomen: Soft N/T Extremities: No Edema Neurology: alert, oriented, follow commands Assessment Assessment 1. Chest pain, atypical; AMI ruled out. Recent echo with LVEF 55%, no WMA 2. Left flank pain; CT abdomen/pelvis with nonobstructing left renal calculus 3. Hypertension; now controlled 4. Hyperlipidemia; statin 5. GERD 6. H/o TIA, dementia 7. COPD, h/o pulmonary blebs, pneumothorax 8. H/o frequent PVC's; recent event monitor without significant arrhythmias. ventricular ectopy was noted 9. Chronic RBBB Recommendations ASA, statin therapy Continue current antiHTN therapy Low-dose BB for arrhythmia suppression Outpatient ischemic evaluation and follow up in our office with Dr. Mari as arranged THEA ALFONSO APRN January 24, 2022 08:17
[2022-01-24] MEDS ORDERED: SENN-209 PO (08:41)
--- NOTE | 2022-01-24 17:24 | DS ---
DATE OF DISCHARGE: 01/24/2022 HOSPITAL COURSE: An 81-year-old male came in through the Emergency Room with chest pain and left flank pain. The patient had elevated blood pressure in the 180s. The patient was admitted for rule out RI protocol, also evaluation of left flank pain, which he complained of quite significantly. His labs look basically good except for some moderate protein malnutrition. UA was fine. COVID negative. Chest x-ray, possible airspace disease, chronic. His CT abdomen and pelvis demonstrated large amount of constipation in that left flank area. His cardiac enzymes were negative. He was reviewed by Cardiology. Troponins were negative. The patient was cleared on that and discharged. He will follow up with his set rider, use stool softeners. IMPRESSION: Otherwise, chest pain, history of angina, constipation, left lower quadrant pain. The patient will be continued to be monitored. See MRAD. Discharged home, followed up as an outpatient. LOYD/WALDEMAR DR: Sol TID: [id number]
== END 2022-01-24 10:45 | disposition home or self-care (01) ==
LOC: ER 16:24 → INTOOBSV 19:15 → ER HOLD 19:15 → 1 SOUTH 21:10
PROVIDERS: ADMIT Family Medicine; ATTEND Family Medicine
DX: R07.89 Other chest pain (principal); Z20.822 Contact with and (suspected) exposure to COVID-19; R10.32 Left lower quadrant pain; I10 Essential (primary) hypertension; J44.9 Chronic obstructive pulmonary disease, unspecified; J98.11 Atelectasis; K21.9 Gastro-esophageal reflux disease without esophagitis; K59.00 Constipation, unspecified; I45.10 Unspecified right bundle-branch block; N20.0 Calculus of kidney; E44.0 Moderate protein-calorie malnutrition; E78.00 Pure hypercholesterolemia, unspecified; N39.0 Urinary tract infection, site not specified; E78.5 Hyperlipidemia, unspecified; F03.90 Unspecified dementia, unspecified severity, without behavioral disturbance, psychotic disturbance, mood disturbance, and anxiety; Z86.73 Personal history of transient ischemic attack (TIA), and cerebral infarction without residual deficits; Z87.891 Personal history of nicotine dependence; Z79.899 Other long term (current) drug therapy; Z98.890 Other specified postprocedural states; Z79.82 Long term (current) use of aspirin
CPT/HCPCS: 36415; 71045; 74176; 80053; 81001; 84484; 85025; 87426; 93005; 99285; G0378; U0003; G0379

== ENCOUNTER → 2022-02-06 | Outpatient (CLI) | payer MEDICARE ==
[2022-01-24 08:11] VITALS: BP 125/73
[~2022-02-06] MED LIST changes: +REGADENOSON 0.4 MG/5 ML DISP.SYRIN. IV ONE; +SENN-209 PO
--- NOTE | 2022-02-06 12:24 | RAD ---
MR#: [id number] Date of Study: 02/06/2022 Ordering Physician: GERSON DOWNS, Referring Physician: MARISA NEWMAN Tech: ROBERT Damon APPROVED REPORT Test Type: Pharmacological Stress Nurse/Tech: ROBERT Damon Test Indications: Chest Pain Cardiac History: none Medications: see EHR Medical History: see EHR Resting ECG: SR with PVC s Resting Heart Rate: 101 bpm Resting Blood Pressure: 128/62mmHg Pretest Chest Pain: None Nurse/Tech Notes Consent: The procedure was explained to the patient in lay terms. Informed consent was witnessed. Wenceslao eout was entered into [employer] [facility]. History and Stress Test performed by ROBERT Damon Pharm. Details Pharmacologic stress testing was performed using 0.4mg per 5ml of regadenoson given intravenously ove r 7-10 seconds. POST EXERCISE Max HR: 123 bpm Max Blood Pressure: 113/60mmHg Blood Pressure response to exercise: Normal blood pressure response during stress. Chest Pain: No. INTERPRETATION Stress EKG Conclusion: Baseline EKG showed sinus rhythm with right bundle branch block. Nondiagnosti c changes at peak stress. PVCs and bigeminy noted during stress. Imaging Protocol IMAGE PROTOCOL: Rest Tc-99m/stress Tc-99m 1 day Rest: Stress: Viability: Radiopharm.Tc99m [id number] Sestamibi Dose10.5mCi 33mCi Duration 15min. 10min. Img Date 02/06/2022 02/06/2022 Inj-Img [id number]. 60min. Rest Admin Site:IV - Right AntecubitalAdministrator: ROBERT Damon Stress Admin Site: IV - Right AntecubitalAdministrator: ROBERT Damon STRESS DATA End Diast. Vol.45.0mlAv. Heart Jjpo381.0bpm End Syst. Vol.8.0mlCO Index BSA3.8L/min Myocardial Mass92.0gEject. Imjcxhno20.0% Stress Rates Pk. Fill Rate4.38EDV/secLVtime Pk. Fill 173.18msec Pk. Empty Rate7.57ESV/secLVtime Pk. Somso008.40msec 1/3 Pk. Fill0.55EDV/sec Stress Scores Regional WT1.00Summed WT14.00 Regional WM0.00Summed WM1.00 Study quality was good. Left Ventricular size was Normal at Rest and Stress. Lung uptake was . Left Ventricular ejection fraction is 81%. The rest and stress images show normal perfusion, normal contraction and thickening. LV Perf. Quant 17 Seg. SSS1.00 17 Seg. SRS0.00 17 Seg. SDS1.00 Stress Defect Extent (% LAD)0.00Rest Defect Extent (% LAD)0.00Rev. Defect Extent (% LAD)0.00 Stress Defect Extent (% LCX) 10.00Rest Defect Extent (% LCX)0.00Rev. Defect Extent (% LCX)0.00 Stress Defect Extent (% RCA)0.00Rest Defect Extent (% RCA)0.00Rev. Defect Extent (% RCA)0.00 Stress Defect Extent (% GILLIAN)1.70Rest Defect Extent (% GILLIAN)0.00Rev. Defect Extent (% GILLIAN)0.00 Conclusion 1. Regadenoson cardioisotope stress test did not show any evidence of ischemia or infarct. 2. Normal left ventricular systolic function with ejection fraction calculated at 81%. 3. Low risk for cardiac events. Signed by : Jose De Leon, Electronically Approved : 02/06/2022 12:23:57
== END ==
LOC: NM 07:38
PROVIDERS: ATTEND Internal Medicine Cardiovascular Disease
DX: R07.9 Chest pain, unspecified (principal)
CPT/HCPCS: 78452; 93017; A9500; J2785